=== PATIENT | male | born 1960 | race Caucasian/White ===

== ENCOUNTER → 2017-12-22 09:16 | Day surgery (SDC) | payer BC, SELFPAY ==
[2017-12-21 15:00] VITALS: BMI 32.5
--- NOTE | 2017-12-21 15:18 | RAD_ITS ---
STUDY: X-RAY CHEST REASON FOR EXAM: Male, 57 years old. Chest pain/pressure TECHNIQUE: PA and 2 lateral views of the chest. COMPARISON: None. FINDINGS: The lungs are clear and expanded. There is no demonstrated pleural abnormality. Normal size heart. Normal mediastinum and nitin. Normal visualized pulmonary arteries. Normal visualized aortic arch and descending thoracic aorta. Normal visualized thoracic spine. Normal visualized ribs, clavicles, and shoulders. There is no demonstrated abnormality of the visualized soft tissue structures of the upper abdomen. RAD/Chest PA and Lateral IMPRESSION: Normal x-ray examination of the chest. Electronically Signed: Misael Huerta MD at 8:40 EDT , Service support ,
[2017-12-21 15:41] LABS: Absolute Lymphocyte Count 2.18 X10^3/ul (0.83-4.51); Absolute Neutrophil Count 4.5 X10^3/uL (2.0-7.7); Basophil# 0.03 X10^3/uL; Basophil% 0.4 % (0-1); Eosinophil# 0.21 X10^3/uL; Eosinophils% 2.7 % (0-5); Hematocrit 50.2 % (40-54); Hemoglobin 17.7 g/dl (13.0-16.5); Lymphocyte # 2.18 X10^3/ul (4.0); Lymphocyte % 28.3 % (19-41); Mean Corp Hgb Conc 35.3 g/gl (32-36); Mean Corpuscular Hgb 30.8 pg (27.0-32.0); Mean Corpuscular Volume 87.3 fL (80-94); Mean Platelet Vol. 10.3 fl (6.2-12.0); Monocyte# 0.75 X10^3/uL; Monocyte% 9.7 % (0-10); Neutrophil # 4.52 X10^3/uL (2.7-7.7); Neutrophil % 58.6 % (47-70); Platelet Count 217 K/mm3 (150-450); RBC Distribution Width CV 13.3 % (11.6-14.6); RBC Distribution Width SD 41.9 fl (35.1-43.9); Red Blood Count 5.75 M/mm3 (4.6-6.2); White Blood Count 7.7 K/mm3 (4.4-11.0)
[2017-12-21 15:46] LABS: POSITIVE COUNT NO; POSITIVE DIFFERENTIAL NO; POSITIVE MORPHOLOGY NO
[2017-12-21 15:59] LABS: International Normalized Ratio 1.1; Prothrombin Time (Protime)PT. 13.8 SECONDS (11.7-14.9)
[2017-12-21 16:23] LABS: Anion Gap 7 (5-15); BUN 16 mg/dL (7-18); BUN/Creat Ratio 14.3 RATIO (10-20); Calcium,Total 8.6 mg/dL (8.5-10.1); Chloride 106 mmol/L (98-107); Creatinine, Serum 1.12 mg/dL (0.70-1.30); EST Glomerular Filtration Rate 71 mL/min (>60); Est Glom Filt Rate - Afr Amer 86 mL/min (>60); Estimated Creatinine Clearance 80.26 ml/min; Glucose 146 mg/dL (74-106); Sodium Level 138 mmol/L (136-145)
--- NOTE | 2017-12-22 09:19 | STE_ITS ---
Reason For Study: CHEST PAIN Stress Results Protocol: Stress Echocardiogram Maximum Predicted HR: 161 bpm Target HR: 137 bpm% Maximum Pr edicted HR: 89 % DurationHeart Rate Stage (mm:ss) (bpm) BPCom ment BASELINE 72 144/84 LUIS PROTOCOL- STAGE 1 3:00 12 6 144/80 LUIS PROTOCOL- STAGE 2 2:45 14 4 146/84MIDSTERNAL CP, L ARM PAIN RECOVERY 92 158/84 CHEST/ARM PAIN SUBSIDED Stress Duration: 5:45 mm:ss Maximum Stress HR: 144 bpm Baseline Echocardiogram Findings Stress Echo Wall motion Data Resting WMIntermediate WMStress WM Resting Wall Motion Wall Motion Stress No regional wall motion No regional wall motion abnormalities noted. abnormalities noted. Ejection Fraction 55 %. Ejection Fraction 65 %. Stress Results Exercise was stopped due to chest pain. EKG Data Baseline ECG demonstrates normal sinus rhythm with a rate of 75 beats per minute. Normal intervals are noted. The resting blood pressure was 144/84. The patient exercised according to the regular Luis protocol for a total duration of 5 min 46sec. The maximum heart rate attained was 144 beats per minute. This was 89% of maximum predicted heart rate. The patient exercised into stage 2 of the Luis protocol. The stress ECG displays diffuse abnormal ST segments. 1.[address] depression noted in the inferolateral leads developing in stage 2 of the exercise with chest pain and arm pain noted. Interpretation Summary Normal resting LV systolic function. Nonstenotic valves. With stress, the LV size decreased and all segments augmented somewhat normally. The LVEF increased from 55% to 65%.There was approximately 1.[address] depression noted starting at stage II of the exercise associated with left arm pain and chest pain. Immediate post recovery there was improvement in the ST changes with dissipation of the chest pain..Images obtained with suboptimal but there was a suggestion of inferior lateral ischemia present based on wall motion abnormalities present. Abnormal stress echo with EKG changes and symptoms noted at a moderate workload. Ordering Physician: Eric Mcnair Referring Physician: Eric Mcnair Performed By: Marium Aleman, ALEKSEY, RVT
--- NOTE | 2017-12-22 13:51 | CASEMGMT ---
Insurance review for [facility] facilities. [facility], [facility], , [place]. If another facility needs reviewed, please contact Anderson SULLIVAN CM @ ext [phone].
--- NOTE | 2017-12-23 09:41 | CL.D_ITS ---
Patient Name: FIORELLA MEDINA Study Date: 12/22/2017 Performing: Eric Mcnair MD Ht: 73 inches 185 cm : 1960 Wt: 247.2 lbs 112 kg Age: 57 Gender: male BSA: 2.35 PROCEDURE(S) PERFORMED KY85-SGM/COR/LV CLINICAL PROFILE AND INDICATIONS Indications: Worsening Angina Heart Failure: None Stress/Imaging Stress Echocardiogram: Yes Result: Positive High RiskStress Echocardiogram: Positi ve High Risk Angina Classification Anginal Classification w/in 2 Weeks: CCS III CAD Presentations: Unstable angina. CONCLUSIONS Severe two-vessel disease involving the proximal and mid left anterior descending artery as well as t he mid and distal left circumflex artery nondominant vessel. RECOMMENDATIONS Surgery consult for coronary revascularization DESCRIPTION OF PROCEDURE The patient arrived to the procedure lab. The risks and benefits of the procedure as well as a full d escription of our services here and current unavailability of surgical backup were fully explained to the patient and/or their significant other prior to the catheterization. The Timeout was completed, verifying the correct patient and procedure. The patient's procedural site was prepped and draped in the usual fashion. Local anesthetic was given subcutaneously to right radial region with Lidocaine 2% . Using a modified Seldinger technique, arterial access was obtained via the right radial artery, a 6 Fr sheath was inserted. Right Coronary Artery selective angiography was then performed in multiple v iews using a 5 Fr. 4.0 Rohwer catheter. Left Coronary Artery selective angiography was performed in mu ltiple views using a 5 Fr. 4.0 Rohwer catheter. Left Coronary Artery selective angiography was perform ed in multiple views using a 5 Fr. JL4 catheter. Left Ventriculography was performed in SCHNEIDER projectio n using a 5 Fr. Pigtail catheter. LV to AO pullback pressures were then recorded.The arterial sheath was pulled and a TR Band was applied for hemostasis w/ 18ml air CORONARY ANGIOGRAPHY DOMINANCE: Left Dominant LEFT HEART ASSESSMENT Left Ventricular Ejection Fraction: by LV Gram 65 % Normal LV wall motion Normal Left Ventricular systolic function LEFT MAIN: Angiographically normal LEFT ANTERIOR DECENDING ARTERY: PROX LAD: Severe proximal 90% eccentric stenosis and mid segment 80% long stenosis involving a first diagonal and first septal intermediate card tender. CIRCUMFLEX ARTERY: Mid eccentric 80% stenosis and a proximal posterior descending artery 80% long erlin notic lesion RIGHT CORONARY ARTERY: MID RCA: 70 % Stenosis COMPLICATIONS No Complications PROCEDURE MEDICATIONS Versed 1 mg IV Fentanyl 50 mcg IV Versed 1 mg IV Oxygen: 2 L/min via nasal cannula Heparin diluted in 23cc Heparinized saline. Patient given 10cc IA of this solution. 12/22/2017 13:09: 45 Verapamil 2.5mg, Ntg 100mcgs, 2000 units of Heparin diluted in 23cc Heparinized saline. Patient give n 10cc IA of this solution. 12/22/2017 13:09:45 Tylenol 650 mg PO 12/22/2017 13:54:10 SUMMARY OF HEMODYNAMIC DATA Time AIR REST ECG 11:25:20 AO 111/68 (87) SA 13:11:15 LV 134/3, 9 13:30:54 LV 137/4, 11 13:31:00 LV 139/4, 12 13:32:28 LVp 141/5, 14 13:32:31 AOp 136/72 (101) 13:32:36 RM AIR REST 14:34:00 Signed By Eric Mcnair MD On 12/22/2017 17:20:57 Eric Mcnair MD
== END ==
PROVIDERS: Family Provider Family Medicine; PCP Family Medicine; Visit Provider Internal Medicine Cardiovascular Disease
DX: I25.110 Atherosclerotic heart disease of native coronary artery with unstable angina pectoris (principal); R07.9 Chest pain, unspecified; E78.00 Pure hypercholesterolemia, unspecified; K21.9 Gastro-esophageal reflux disease without esophagitis; G47.33 Obstructive sleep apnea (adult) (pediatric); Z79.82 Long term (current) use of aspirin; Z79.899 Other long term (current) drug therapy
CPT/HCPCS: 36415; 71046; 80048; 85025; 85610; 93017; 93350; 93458; 99152; 99153; J7040; Q9957; Q9967; A4216; C1769; C1894

== ENCOUNTER → 2018-01-18 07:44 | Outpatient (CLI) | payer BC, SELFPAY ==
--- NOTE | 2018-01-18 12:56 | PCM.CR.HP2 ---
CR - History & Physical - General Arrival date:: 01/18/18 Arrival time:: 12:59 Date of Referral:: 01/09/18 Date of CR Evaluation:: 01/18/18 Referring Physician: Dr. Eric Mcnair Primary Diagnosis: CABG X 4 - History of Present Cardiac Event Onset Date: Enter Onset Date of cardiac illnesses in Comment field below Coronary Artery Bypass Graft:: Yes - 12/26/2017 @ [facility] Dr. Hart Type of Symptoms:: Mowing shortness of breath, or pulling something notice short of breath. Referred to Dr. Mcnair from Dr. Vázquez for further evaluation. Interventions with present event:: Left heart cath and within 12 minutes sent to [facility] following completion. Were there any complications?: Spontaneous pneumothorax; chest tube placed. - Medications Home Medications: Ambulatory Orders Medication Instructions Recorded esomeprazole magnesium 40 mg 40 mg PO QDAY 12/20/17 capsule,delayed release fluticasone 50 mcg/actuation nasal 2 spray INTRANASAL QDAY 12/20/17 spray,suspension aspirin 81 mg tablet,delayed 81 mg PO QDAY #90 tab 12/21/17 release melatonin 10 mg capsule 10 mg PO HS PRN 12/21/17 pravastatin 40 mg tablet 40 mg PO QHS tab 12/21/17 acetaminophen 325 mg tablet 650 mg PO Q6H PRN tab 01/05/18 hydrocodone 5 mg-acetaminophen 325 1 tab PO Q6H PRN 01/05/18 mg tablet polyethylene glycol 3350 17 17 g PO QDAY PRN g 01/05/18 gram/dose oral powder sennosides 8.6 mg tablet 8.6 mg PO BID PRN 01/05/18 metoprolol succinate ER 50 mg 50 mg PO QDAY #90 tab 01/06/18 tablet,extended release 24 hr - Allergies Allergies/Adverse Reactions: Allergies atorvastatin Adverse Reaction (Unverified 01/18/18 13:04) myalgias started taking statins at night and experiencing no side effects. - Sleep Disorder Evaluation Hx of Sleep Apnea: Yes Do you snore loudly (louder than talking or can be heard through closed doors)?: Yes - uses CPAP at variable setting 7-17cm H2O Do you often feel tired/ fatigued/ sleepy during daytime?: No Has anyone observed you stop breathing during sleep?: No History of Hypertension (for STOP score): No STOP Results: Negative Advanced Directives - Advanced Directives Power of Sample Card Maker: Yes - is legal P.O.A Healthcare Living Will: Yes Advance Directives on File: No - unsure if they are on file here at [facility] DNR Order?:: No Past Medical History - Past Medical Illness Medical History: Past Medical History (Last Reviewed 01/06/18 @ 13:55 by Eric Mcnair MD) Pneumothorax (Acute) J93.9 Post CABG, 12/30/17: trace on right and small left apcial pneumothoraces: chest tube placed temporarily to aid in resolution. 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 Rafi Hart @ [facility]: NO to LAD, free PATRICIA to DX, reverse SVG to OM and reverse SVG to left posterior lateral branch GERD (gastroesophageal reflux disease) (Chronic) K21.9 Obstructive sleep apnea (Chronic) G47.33 Hyperlipidemia (Chronic) E78.5 - Past Surgical History Surgical History: Past Surgical History (Last Reviewed 01/06/18 @ 13:55 by Eric Mcnair MD) S/P CABG x 4 (Chronic) Onset Date: 12/26/17 Z95.[address] Rafi Hart @ [facility]: NO to LAD, free PATRICIA to DX, reverse SVG to OM and reverse SVG to left posterior lateral branch History of left heart catheterization (Chronic) Onset Date: Z98.890 - Family History Summary Family History: Family History (Last Reviewed 01/06/18 @ 13:55 by Eric Mcnair MD) Mother Cancer Father CAD (coronary artery disease) [place] in his 50's CABG Myocardial infarction Social History - Smoking History Smoking Status: Never smoker Hx Tobacco Use: No Hx Smoking Exposure: No - Alcohol Use Alcohol Usage: No - Substance Abuse Hx Substance Use: No - Occupation Occupation (List type of work in comments):: Employed Hours worked per day:: 8 - average day can be 8 to 10 hours - Hobbies, Recreation, Social Activities Hobbies: Other - golfing. Recreational Activities: I am able to engage in a few activities - experiences easy fatigue with least little bit of activity; only been 3 weeks post op. Social Environment - Status Marital Status: - Current Living Arrangements Living Environment:: Spouse - Children How many children do you have?: 3 Do any of your children live nearby?: No - 2-[place] [facility] - Safety Do you feel safe in your surroundings?: Yes - Assistance Do you need any assistance at home?: Not now; first week home had family there to help. Review of Systems - Review of Systems Hints: Right click = Denies (Slash). Left click = Reports (Lorain) Review of Present Symptoms: Reports: Shortness of Breath with Exertion - walking about 1/2 mile to mile each day around neighborhood; only experiences fatigue no shortness of breath., Wound Healing, Dizziness/Lightheadedness - sometimes on metoprolol 50 mg a little sensitive standing to quickly or moving about to quickley., Fatigue, Appetite - Normal - back to normal now, has cut back on portion sizes., Appetite - Special Diet - Lost 18 pounds, 1800 calories low fat, low salt diet.. Denies: Shortness of Breath at Rest, Operative Discomfort, Heart Arrhythmia/Irregularities, Sleep - Normal - very difficult; currently taking ambien at night sleep very irregular and spuratic. Finds that sleeping can be very uncomfortable. Turn the wrong way get spuratic pain or get discomfort from monique surgery., Sexual Changes - Pain Is Patient Pain Free?: No Pain Location: none Pain Level: 0/10 Risk Factor Assessment - Chief Complaint Chief Complaint: Patient is a very pleasant 57 year old male of Dr. Mcnair who presents to cardiac rehab today following recent 4 vessel coronary bypass surgery on 12/26/2017 at [facility] under the care of Dr. Rafi Hart. - Vital Signs Temperature: 98.7 F Respiratory Rate: 16 Pulse Ox: 98 Blood Pressure: 128/74 Nailbeds:: pink - Pulse Pulse Rate: 98 - had some coffee this morning. Pulse Rhythm: Regular - Hypertension Blood Pressure Sitting - Left Arm: 128/74 - Obesity Height: 6 ft 2 in Weight:: 230 lb - on home scale clothed today Weight in Pounds: 230.0 lbs Weight Source: Stated by Patient Body Mass Index (BMI): 29.5 Desired Body Weight: 186-194 Nutritional Referral for Obesity: Yes - Patient is interested in structured weight loss plan and cardiac diet help. - Physical Inactivity Physical Inactivity: Reg Exercise 30 min/day - For Smoking Smoking Risk Guidelines: Smoking Low Risk: None or quit greater than 6 months ago. Smoking Moderate Risk: Smoker or quit 6 months or less ago. Smoking High Risk: Smoker - For Dyslipidemia Dyslipidemia Risk Guidelines: Low Risk: Moderate Risk: High Risk: 15-25% fat 25.1-29% fat >/= 30% fat. <7% sat fat 7-9% sat fat >9% sat fat. <150 mg chol 150-299 mg chol >/= 300 mg chol. LDL <100 LDL 100-129 LDL >/= 130. Chol/HDL ratio <5.0 Chol/HDL ratio 5.0-6.0 Chol/HDL ratio >6.0. Triglycerides <100 Triglycerides 100-149 Triglycerides >/= 150 - For Diabetes Mellitus Diabetes Risk Guidelines: Diabetes Low Risk: HgA1c <6.5% and/or FBG <120. Diabetes Moderate Risk: HgA1c 6.6-7.9% and/or FBG 120-180. Diabetes High Risk: HgA1c >/= 8% and/or FBG >180 - For Obesity/Overweight Obesity/Overweight Risk Guidelines: Obesity Low Risk: BMI <25.0. Obesity Moderate Risk: BMI 25-29.9. Obesity High Risk: BMI >/= 30.0 - For Hypertension Hypertension Risk Guidelines: Hypertension Low Risk: Systolic <120 and Diastolic <80. Hypertension Moderate Risk: Systolic 120-139 and Diastolic 80-89. Hypertension High Risk: Systolic >/= 140 and Diastolic >/= 90 - For Sedentary Lifestyle Sedentary Lifestyle Risk Guidelines: Sedentary Lifestyle Low Risk: >/= 1,500 kcal/week. Sedentary Lifestyle Moderate Risk: 700-1,499 kcal/week. Sedentary Lifestyle High Risk: < 700 kcal/week - For Depression Depression Risk Guidelines: Depression Low Risk: Not clinically depressed. Depression Moderate Risk: Mildly depressed. Depression High Risk: Clinically depressed - Family History Family History: Family History (Last Reviewed 01/06/18 @ 13:55 by Eric Mcnair MD) Mother Cancer Father CAD (coronary artery disease) Myocardial infarction Motivation - Motivation to Participate On a scale of 1 to 10, how prepared are you to commit to attending program?: 9 - make sure doing what I need to do. What do you see as barriers to successfully being able to complete the program?: none What do you see as the benefits of succesfully completing the program? In other words, what do you hope to get out of participating in the program?: keep healthy, lose a few more pounds, live a healthier lifestyle Are there issues you are dealing with that will interfere with completing the program?: none Do you have a spouse or signficant other, family or friends who will help support you to complete the program?: yes.
--- NOTE | 2018-01-18 13:07 | CR.HP_ITS ---
CR - History & Physical - General Arrival date:: 01/18/18 Arrival time:: 12:59 Date of Referral:: 01/09/18 Date of CR Evaluation:: 01/18/18 Referring Physician: Dr. Eric Mcnair Primary Diagnosis: CABG X 4 - History of Present Cardiac Event Onset Date: Enter Onset Date of cardiac illnesses in Comment field below Coronary Artery Bypass Graft:: Yes - 12/26/2017 @ [facility] Dr. Hart Type of Symptoms:: Mowing shortness of breath, or pulling something notice short of breath. Referred to Dr. Mcnair from Dr. Vázquez for further evaluation. Interventions with present event:: Left heart cath and within 12 minutes sent to [facility] following completion. Were there any complications?: Spontaneous pneumothorax; chest tube placed. - Medications Home Medications: Ambulatory Orders Medication Instructions Recorded esomeprazole magnesium 40 mg 40 mg PO QDAY 12/20/17 capsule,delayed release fluticasone 50 mcg/actuation nasal 2 spray INTRANASAL QDAY 12/20/17 spray,suspension aspirin 81 mg tablet,delayed 81 mg PO QDAY #90 tab 12/21/17 release melatonin 10 mg capsule 10 mg PO HS PRN 12/21/17 pravastatin 40 mg tablet 40 mg PO QHS tab 12/21/17 acetaminophen 325 mg tablet 650 mg PO Q6H PRN tab 01/05/18 hydrocodone 5 mg-acetaminophen 325 1 tab PO Q6H PRN 01/05/18 mg tablet polyethylene glycol 3350 17 17 g PO QDAY PRN g 01/05/18 gram/dose oral powder sennosides 8.6 mg tablet 8.6 mg PO BID PRN 01/05/18 metoprolol succinate ER 50 mg 50 mg PO QDAY #90 tab 01/06/18 tablet,extended release 24 hr - Allergies Allergies/Adverse Reactions: Allergies atorvastatin Adverse Reaction (Unverified 01/18/18 13:04) myalgias started taking statins at night and experiencing no side effects. - Sleep Disorder Evaluation Hx of Sleep Apnea: Yes Do you snore loudly (louder than talking or can be heard through closed doors)? : Yes - uses CPAP at variable setting 7-17cm H2O Do you often feel tired/ fatigued/ sleepy during daytime?: No Has anyone observed you stop breathing during sleep?: No History of Hypertension (for STOP score): No STOP Results: Negative Advanced Directives - Advanced Directives Power of Information Writer: Yes - is legal P.O.A [facility] Living Will: Yes Advance Directives on File: No - unsure if they are on file here at [facility] DNR Order?:: No Past Medical History - Past Medical Illness Medical History: Past Medical History (Last Reviewed 01/06/18 @ 13:55 by Eric Mcnair MD) Pneumothorax (Acute) J93.9 Post CABG, 12/30/17: trace on right and small left apcial pneumothoraces: chest tube placed temporarily to aid in resolution. Atherosclerotic heart disease of [place] coronary artery without angina pectoris (Chronic) I25.[address] Rafi Hart @ [facility]: ON to LAD, free PATRICIA to DX, reverse SVG to OM and reverse SVG to left posterior lateral branch GERD (gastroesophageal reflux disease) (Chronic) K21.9 Obstructive sleep apnea (Chronic) G47.33 Hyperlipidemia (Chronic) E78.5 - Past Surgical History Surgical History: Past Surgical History (Last Reviewed 01/06/18 @ 13:55 by Eric Mcnair MD) S/P CABG x 4 (Chronic) Onset Date: 12/26/17 Z95.[address] Rafi Hart @ [facility]: NO to LAD, free PATRICIA to DX, reverse SVG to OM and reverse SVG to left posterior lateral branch History of left heart catheterization (Chronic) Onset Date: Z98.890 - Family History Summary Family History: Family History (Last Reviewed 01/06/18 @ 13:55 by Eric Mcnair MD) Mother Cancer Father CAD (coronary artery disease) [place] in his 50's CABG Myocardial infarction Social History - Smoking History Smoking Status: Never smoker Hx Tobacco Use: No Hx Smoking Exposure: No - Alcohol Use Alcohol Usage: No - Substance Abuse Hx Substance Use: No - Occupation Occupation (List type of work in comments):: Employed Hours worked per day:: 8 - average day can be 8 to 10 hours - Hobbies, Recreation, Social Activities Hobbies: Other - golfing. Recreational Activities: I am able to engage in a few activities - experiences easy fatigue with least little bit of activity; only been 3 weeks post op. Social Environment - Status Marital Status: - Current Living Arrangements Living Environment:: Spouse - Children How many children do you have?: 3 Do any of your children live nearby?: No - 2-[place] 1-[facility] - Safety Do you feel safe in your surroundings?: Yes - Assistance Do you need any assistance at home?: Not now; first week home had family there to help. Review of Systems - Review of Systems Hints: Right click = Denies (Slash). Left click = Reports ([place]) Review of Present Symptoms: Reports: Shortness of Breath with Exertion - walking about 1/2 mile to mile each day around neighborhood; only experiences fatigue no shortness of breath., Wound Healing, Dizziness/Lightheadedness - sometimes on metoprolol 50 mg a little sensitive standing to quickly or moving about to quickley., Fatigue, Appetite - Normal - back to normal now, has cut back on portion sizes., Appetite - Special Diet - Lost 18 pounds, 1800 calories low fat, low salt diet.. Denies: Shortness of Breath at Rest, Operative Discomfort, Heart Arrhythmia/Irregularities, Sleep - Normal - very difficult; currently taking ambien at night sleep very irregular and spuratic. Finds that sleeping can be very uncomfortable. Turn the wrong way get spuratic pain or get discomfort from monique surgery., Sexual Changes - Pain Is Patient Pain Free?: No Pain Location: none Pain Level: 0/10 Risk Factor Assessment - Chief Complaint Chief Complaint: Patient is a very pleasant 57 year old male of Dr. Mcnair who presents to cardiac rehab today following recent 4 vessel coronary bypass surgery on 12/26/2017 at [facility] under the care of Dr. Rafi Hart. - Vital Signs Temperature: 98.7 F Respiratory Rate: 16 Pulse Ox: 98 Blood Pressure: 128/74 Nailbeds:: pink - Pulse Pulse Rate: 98 - had some coffee this morning. Pulse Rhythm: Regular - Hypertension Blood Pressure Sitting - Left Arm: 128/74 - Obesity Height: 6 ft 2 in Weight:: 230 lb - on home scale clothed today Weight in Pounds: 230.0 lbs Weight Source: Stated by Patient Body Mass Index (BMI): 29.5 Desired Body Weight: 186-194 Nutritional Referral for Obesity: Yes - Patient is interested in structured weight loss plan and cardiac diet help. - Physical Inactivity Physical Inactivity: Reg Exercise 30 min/day - For Smoking Smoking Risk Guidelines: Smoking Low Risk: None or quit greater than 6 months ago. Smoking Moderate Risk: Smoker or quit 6 months or less ago. Smoking High Risk: Smoker - For Dyslipidemia Dyslipidemia Risk Guidelines: Low Risk: Moderate Risk: High Risk: 15-25% fat 25.1-29% fat >/= 30% fat. <7% sat fat 7-9% sat fat >9% sat fat. <150 mg chol 150-299 mg chol >/= 300 mg chol. LDL <100 LDL 100-129 LDL >/= 130. Chol/HDL ratio <5.0 Chol/HDL ratio 5.0-6.0 Chol/HDL ratio >6.0. Triglycerides <100 Triglycerides 100-149 Triglycerides >/= 150 - For Diabetes Mellitus Diabetes Risk Guidelines: Diabetes Low Risk: HgA1c <6.5% and/or FBG <120. Diabetes Moderate Risk: HgA1c 6.6-7.9% and/or FBG 120-180. Diabetes High Risk: HgA1c >/= 8% and/or FBG >180 - For Obesity/Overweight Obesity/Overweight Risk Guidelines: Obesity Low Risk: BMI <25.0. Obesity Moderate Risk: BMI 25-29.9. Obesity High Risk: BMI >/= 30.0 - For Hypertension Hypertension Risk Guidelines: Hypertension Low Risk: Systolic <120 and Diastolic <80. Hypertension Moderate Risk: Systolic 120-139 and Diastolic 80-89. Hypertension High Risk: Systolic >/= 140 and Diastolic >/= 90 - For Sedentary Lifestyle Sedentary Lifestyle Risk Guidelines: Sedentary Lifestyle Low Risk: >/= 1 ,500 kcal/week. Sedentary Lifestyle Moderate Risk: 700-1,499 kcal/week. Sedentary Lifestyle High Risk: < 700 kcal/week - For Depression Depression Risk Guidelines: Depression Low Risk: Not clinically depressed. Depression Moderate Risk: Mildly depressed. Depression High Risk: Clinically depressed - Family History Family History: Family History (Last Reviewed 01/06/18 @ 13:55 by Eric Mcnair MD) Mother Cancer Father CAD (coronary artery disease) Myocardial infarction Motivation - Motivation to Participate On a scale of 1 to 10, how prepared are you to commit to attending program?: 9 - make sure doing what I need to do. What do you see as barriers to successfully being able to complete the program? : none What do you see as the benefits of succesfully completing the program? In other words, what do you hope to get out of participating in the program?: keep healthy, lose a few more pounds, live a healthier lifestyle Are there issues you are dealing with that will interfere with completing the program?: none Do you have a spouse or signficant other, family or friends who will help support you to complete the program?: yes.
--- NOTE | 2018-01-18 13:19 | CR.ITP_ITS ---
General Information - General Information Admitting Diagnosis: CABG x4 - Education/Goals Individual Counseling: Initial Assessment: Abnormal Cholesterol Levels, Overweight/Obesity, B. Waist Circumference >35/Females >40/Males Cardiac Rehabilitation Goals: 1. Maintain the individual as the primary focus of care. 2. To improve the patient's quality of life. 3. Identification of cardiac risk factors and provide cardiac risk factor management. 4. Enhance the psychosocial status of the patient. 5. Reconditioning enough to allow the patient to resume customary activities. 6. Control symptoms of cardiac disease Scale for measuring improvement of personal goals: Enter appropriate number in Comments. 2 = Unchanged. 3 = Slightly Better. 4 = Moderate Improvement. 5 = Met my Goal Personal Goals: Initial Assessment: Improve management of stress and emotions, Improve energy level, Get back to work, or to resume activities faster, Improve knowledge of cardiac disease, Improve diet and eating habits (eat healthier), Control risk factors (learn risk factor modification) Exercise - Initial Assessment - Visit Date of Eval: 01/18/18 - established ITP; start on 01/20/2018 - Stages of Change Stages of Change:: Action - Exercise Prescription Mode:: Treadmill, Airdyne, NuStep Angina with exercise?: No Target Heart Rate:: 120-128 - Hypertension Do any of the following apply?: No Resting Blood Pressure:: 128/74 - Intervention Home Exercise/Activity Goal:: Moderate Exercise 30 min/day x 5 days/wk - Education Goals:: Warm-up, RPE ABDOULAYE Scale, S/S, Safe Exercise, Self-Monitoring - Exercise Program Goals Exercise Program Goals: Aerobic Activity >30 min Nutrition - Initial Assessment - Program Goals Nutrition Program Goals: LDL <70. Total Cholesterol <200. HDL >45. Triglycerides <150. HgbA1C <7%. BMI <25 - Visit Date of Assessment:: 01/18/18 - Stages of Change Stages of Change:: Action - Diabetes Diabetes:: No - Weight Management Height: 6 ft 2 in Weight:: 230 lb Weight Goal (kg):: 194 lb Body Fat %:: 29.5 - Intervention Referral to dietitian:: Yes - Patient is interested in structured weight loss and cardiac diet guideline Will attend diet classes:: Yes - Education Gave educational materials for:: Healthy eating Tobacco - Initial Assessment - Program Goals Tobacco Program Goals: Complete smoking cessation. Attend education classes. Improve Knowledge Test score - Stage of Change Stages of Change:: Action - Learning Barriers Learning Barriers: Ready to Learn - Tobacco Use Tobacco Use: Non-smoker - Patient has never smoked Do you use smokeless tobacco?: No - Intervention Smoking Cessation Referral:: No Individual Education/Counseling:: No Education Schedule Given:: Yes - Education Gave educational material for:: Coronary artery disease, Risk factors, Sexuality , Medical compliance, Cardiac A&P, Angina signs & symptoms Psychosocial - Initial Assess - Target Goals Target Goals: Assess presence or absence of depression. Using a valid screening tool, maximizes coping skills. Positive support system - Stages of Change Stages of Change:: Action - Psychosocial Test Tool Used:: HANDS Depression Questionnaire - Intervention PS - Interventions: Yes Attend Stress Management Classes, Yes Uses Stress Management Skills - Read, prayer, and watch old movies, No Referral to Mental Health, No Referral to [facility] Case Management, No Referral to Physician - Education Gave educational materials for:: Coping techniques, Signs & symptoms of depression, Stress management, Relaxation techniques - Patient/Program Goal Preventative Medication(s):: Aspirin, REECE inhibitor, Clopidogrel, Beta adriana, Statin/lipid - Assistive Devices Assistive Devices:: None Fall Risk Assessed:: Yes Patient Health Questionnaire Initial Assessment 1. Little interest or pleasure in doing things: More than half the days 2. Feeling down, depressed, or hopeless: More than half the days 3. Trouble falling or staying asleep, or sleeping too much: Several days 4. Feeling tired or having little energy: More than half the days 5. Poor appetite or overeating: More than half the days 6. Feeling bad about yourself -- or that you are a failure or have let yourself or your family down: Not at all 7. Trouble concentrating on things, such as reading the newspaper or watching television: More than half the days 8. Moving or speaking so slowly that other people could have noticed. Or the opposite - being so fidgety or restless that you have been moving around a lot more than usual: Not at all 9. Thoughts that you would be better off , or of hurting yourself in some way: Not at all How difficult have these problems made it for you to do your work, take care of things at home, or get along with other people?: Not difficult at all - patient noted he does not feel depressed; scores only reflect being 3 weeks post op and just getting back to normal activity. Total Score: 11 SHERRY-Q SV Test - Statements CAD is a disease of the arteries in the heart: False Examples of risk factors for heart disease: True Angina is chest pain or discomfort: True The benefits of resistance training include: True Eating more meat and dairy products: False Anti-platelet medications such as aspirin are important: True The only effective way to manage stress: False An exercise warm-up slowly increases heart rate: I Don't Know Prepared, processed foods usually have high sodium: True Depression is common after a heart attack: True The statin medications lower cholesterol: True To control blood pressure, lower the amount of sodium: True If someone gets chest discomfort during walking: False Transfats are partially hydrogenated vegetable oils: True Sleep apnea that is not treated increases the risk: False To control cholesterol, one should become a vegetarian: False Someone knows if he/she is exercising at the right level: True Diabetes cannot be prevented with exercise & health eating: False Stress is a large risk for heart attack: True A diet that can help lower blood pressure is rich in: True - Total Score Total Correct Responses: 19 Self-Efficacy Initial Assessment We would like to know how confident you are in doing certain activities. Please select your confidence level for:: Select your confidence level for the following using the scale 1-10 where 1 is not at all confident and 10 is totally confident. Your score is the average of all 6 responses. Fatigue: How confident are you that you can keep the fatigue caused by your disease from interfering with the things you want to do? Select Number: 10 Physical Discomfort or Pain: How confident are you that you can keep the physical discomfort or pain of your disease from interfering with the things you want to do? Select Number: 10 Emotional Distress: How confident are you that you can keep the emotional distress caused by your disease from interfering with the things you want to do? Select Number: 9 Other Symptoms or Health Problems: How confident are you that you can keep other symptoms or health problems from interfering with the things you want to do? Select Number: 10 Different Tasks and Activities: How confident are you that you can do the different tasks and activities needed to manage your health condition so as to reduce your need to see a doctor? Select Number: 10 Medication: How confident are you that you can do things other than just taking medication to reduce how much your illness affects your everyday life? Select Number: 10 Total Score:: 9 Nutrition Survey - Nutrition Survey Instructions Scoring Instructions: Scoring is as follows: Yes = 1 points. No = 0 point. Patient score that is >/=12 is considered to be at potential nutritional risk and could benefit from a referral to a registered dietitian. - Nutrition Survey Initial Have you lost >10 lbs over the past 2 months without trying?: Yes Are you following a special diet at home for diabetes, low fat, or low salt?: No Are you interested in meeting with a dietitian for help understanding your diet? : Yes Do you eat less than 3 meals a day?: No Do you eat fatty meats (osuna, sausage, ribs, etc), fried foods, desserts, large amounts of salad dressings, margarine, butter, or cheese most days?: Yes Do you have food allergies? [Enter types in comment field]: No Do you eat in restaurants more than 3 times a week?: No Do you season food with salt, seasoning salt, or garlic salt?: No Do you used canned, boxed, frozen meals, or soups, seasoning packets?: No Total Score:: 3
[2018-01-18 13:28] VITALS: BP 128/74; PULSE 98; RESP 16; TEMP 37.1; O2SAT 98; BMI 29.5
[2018-01-18 14:40] VITALS: BP 128/74
== END ==
PROVIDERS: Family Provider Family Medicine; PCP Family Medicine; Visit Provider Internal Medicine Cardiovascular Disease
DX: Z95.1 Presence of aortocoronary bypass graft (principal)

== ENCOUNTER 2018-02-06 15:15 | Outpatient (RCR) | payer BC, SELFPAY ==
--- NOTE | 2018-02-01 06:59 | PCM.CR.ITP ---
Exercise - 30-day Assessment - Visit Date of Eval: 02/01/18 Session #:: 5 - Stages of Change Stages of Change:: Action - Exercise Prescription Mode:: Treadmill, Rower, Airdyne, NuStep Frequency (x/week): 3 Duration:: 30 METs - Progression: 0.5-1 MET as tolerated: 4.5 Target Heart Rate:: 120-128 mx HR 133 - Hypertension Resting Blood Pressure:: 120/60 Peak Exercise Blood Pressure:: 128/62 Medication Changes:: No - Intervention Home Exercise/Activity Goal:: Moderate Exercise 30 min/day x 5 days/wk - Education Goals:: Warm-up, RPE ABDOULAYE Scale, S/S, Safe Exercise, Self-Monitoring - Exercise Program Goals Exercise Program Goals: Aerobic Activity >30 min Nutrition - 30-Day Assessment - Program Goals Nutrition Program Goals: LDL <70. Total Cholesterol <200. HDL >45. Triglycerides <150. HgbA1C <7%. BMI <25 - Visit Date of Eval: 02/01/18 - Stages of Change Stages of Change:: Action - Lipids Has the patient seen the dietitian?: No - Diabetes Diabetes:: No - Weight Management Weight:: 230 lb - lost 10 pounds so far! - Intervention Referral to dietitian:: No Referral to Diabetic Clinic:: No Will attend diet classes:: Yes - Education Attended class for:: Healthy eating Tobacco - Initial Assessment - Program Goals Tobacco Program Goals: Complete smoking cessation. Attend education classes. Improve Knowledge Test score - Learning Barriers Learning Barriers: Ready to Learn Tobacco - 30-Day Assessment - Program Goals Tobacco Program Goals: Complete smoking cessation. Attend education classes. Improve Knowledge Test score - Stage of Change Stages of Change:: Action - Learning Barriers Learning Barriers: Participates in education - Family Support Do you have family support?: Yes - participates in education also - Tobacco Use Tobacco Use: Non-smoker Do you use smokeless tobacco?: No - Intervention Smoking Cessation Referral:: No Individual Education/Counseling:: No Education Schedule Given:: Yes - Education Attended class for:: Coronary artery disease, Risk factors, Sexuality, Medical compliance, Cardiac A&P, Angina signs & symptoms Psychosocial - Initial Assess - Target Goals Target Goals: Assess presence or absence of depression. Using a valid screening tool, maximizes coping skills. Positive support system - Psychosocial Test Tool Used:: HANDS Depression Questionnaire - Assistive Devices Fall Risk Assessed:: Yes Psychosocial - 30-Day Assess - Target Goals Target Goals: Assess presence or absence of depression. Using a valid screening tool, maximizes coping skills. Positive support system - Stages of Change Stages of Change:: Action - Psychosocial Test Tool Used:: HANDS Depression Questionnaire - Intervention PS - Interventions: Yes Attend Stress Management Classes, No Referral to Mental Health, No Referral to [facility] Case Management, No Referral to Physician, No Uses Stress Management Skills - Education Attended classes for:: Coping techniques, Signs & symptoms of depression, Stress management, Relaxation techniques - Patient/Program Goal Preventative Medication(s):: Aspirin, Clopidogrel, Statin/lipid - Assistive Devices Assistive Devices:: None Fall Risk Assessed:: Yes Patient Health Questionnaire 30-Day Re-eval Assessment 1. Little interest or pleasure in doing things: Not at all 2. Feeling down, depressed, or hopeless: Not at all 3. Trouble falling or staying asleep, or sleeping too much: Not at all 4. Feeling tired or having little energy: Not at all 5. Poor appetite or overeating: Not at all 6. Feeling bad about yourself -- or that you are a failure or have let yourself or your family down: Not at all 7. Trouble concentrating on things, such as reading the newspaper or watching television: Not at all 8. Moving or speaking so slowly that other people could have noticed. Or the opposite - being so fidgety or restless that you have been moving around a lot more than usual: Not at all 9. Thoughts that you would be better off , or of hurting yourself in some way: Not at all Total Score: 0 Self-Efficacy 30-Day Re-eval Assessment We would like to know how confident you are in doing certain activities. Please select your confidence level for:: Select your confidence level for the following using the scale 1-10 where 1 is not at all confident and 10 is totally confident. Your score is the average of all 6 responses. Fatigue: How confident are you that you can keep the fatigue caused by your disease from interfering with the things you want to do? Select Number: 10 Physical Discomfort or Pain: How confident are you that you can keep the physical discomfort or pain of your disease from interfering with the things you want to do? Select Number: 10 Emotional Distress: How confident are you that you can keep the emotional distress caused by your disease from interfering with the things you want to do? Select Number: 10 Other Symptoms or Health Problems: How confident are you that you can keep other symptoms or health problems from interfering with the things you want to do? Select Number: 10 Different Tasks and Activities: How confident are you that you can do the different tasks and activities needed to manage your health condition so as to reduce your need to see a doctor? Select Number: 10 Medication: How confident are you that you can do things other than just taking medication to reduce how much your illness affects your everyday life? Select Number: 10 Total Score:: 10
[2018-02-01 07:03] VITALS: BP 120/60; BP 128/62
== END 2018-02-07 23:59 ==
LOC: CR 15:15
PROVIDERS: Family Provider Family Medicine; PCP Family Medicine; Visit Provider Internal Medicine Cardiovascular Disease
DX: I25.10 Atherosclerotic heart disease of native coronary artery without angina pectoris (principal); Z95.1 Presence of aortocoronary bypass graft
CPT/HCPCS: 93798

== ENCOUNTER 2018-03-10 15:15 | Outpatient (RCR) | payer BC, SELFPAY ==
[2018-02-08 01:23] VITALS: BP 120/60; BP 128/62
--- NOTE | 2018-03-03 08:20 | CR.ITP_ITS ---
General Information - General Information Admitting Diagnosis: S/P CABG - Education/Goals Barriers to Learning: None Cardiac Rehabilitation Goals: 1. Maintain the individual as the primary focus of care. 2. To improve the patient's quality of life. 3. Identification of cardiac risk factors and provide cardiac risk factor management. 4. Enhance the psychosocial status of the patient. 5. Reconditioning enough to allow the patient to resume customary activities. 6. Control symptoms of cardiac disease Scale for measuring improvement of personal goals: Enter appropriate number in Comments. 2 = Unchanged. 3 = Slightly Better. 4 = Moderate Improvement. 5 = Met my Goal Exercise - 60-Day Assessment - Visit Date of Eval: 03/03/18 Session #:: 16 - Stages of Change Stages of Change:: Action - Exercise Prescription Mode:: Treadmill, Airdyne, NuStep Frequency (x/week): 3 Duration:: 30 METs: 6.9 Target Heart Rate:: 128-137 Max HR 147 - Hypertension Resting Blood Pressure:: 110/62 Peak Exercise Blood Pressure:: 158/78 Medication Changes:: No - Intervention Home Exercise/Activity Goal:: Sitting Time <3 hrs/day - Education Goals:: Warm-up, RPE ABDOULAYE Scale, S/S, Safe Exercise, Self-Monitoring - Exercise Program Goals Exercise Program Goals: Aerobic Activity >30 min, B/P <130/80 Nutrition - 60-Day Assessment - Program Goals Nutrition Program Goals: LDL <70. Total Cholesterol <200. HDL >45. Triglycerides <150. HgbA1C <7%. BMI <25 - Visit Date of Eval: 03/03/18 - Stages of Change Stages of Change:: Action - Lipids Has the patient seen the dietitian?: No - Diabetes Diabetes:: No - Weight Management Weight:: 104.78 kg - Intervention Referral to dietitian:: No Referral to Diabetic Clinic:: No Will attend diet classes:: Yes - Education Attended class for:: Signs & symptoms of hypoglycemia, Signs & symptoms of hyperglycemia, Relate diabetes to coronary artery disease, Healthy eating Tobacco - Initial Assessment - Program Goals Tobacco Program Goals: Complete smoking cessation. Attend education classes. Improve Knowledge Test score - Learning Barriers Learning Barriers: Ready to Learn Tobacco - 60-Day Assessment - Program Goals Tobacco Program Goals: Complete smoking cessation. Attend education classes. Improve Knowledge Test score - Stage of Change Stages of Change:: Action - Learning Barriers Learning Barriers: Participates in education - Family Support Do you have family support?: Yes - Tobacco Use Tobacco Use: Non-smoker Do you use smokeless tobacco?: No - Intervention Smoking Cessation Referral:: No Individual Education/Counseling:: No Education Schedule Given:: Yes - Education Attended class for:: Tobacco triggers, Coronary artery disease, Risk factors, Sexuality, Medical compliance, Cardiac A&P, Angina signs & symptoms Psychosocial - 60-Day Assess - Target Goals Target Goals: Assess presence or absence of depression. Using a valid screening tool, maximizes coping skills. Positive support system - Stages of Change Stages of Change:: Action - Psychosocial Test Tool Used:: HANDS Depression Questionnaire - Intervention PS - Interventions: Yes Attend Stress Management Classes, Yes Uses Stress Management Skills, No Referral to Mental Health, No Referral to [facility] Case Management, No Referral to Physician - Education Attended classes for:: Coping techniques, Signs & symptoms of depression, Stress management, Relaxation techniques - Assistive Devices Assistive Devices:: None Fall Risk Assessed:: Yes Patient Health Questionnaire 60-Day Re-eval Assessment 1. Little interest or pleasure in doing things: Not at all 2. Feeling down, depressed, or hopeless: Not at all 3. Trouble falling or staying asleep, or sleeping too much: Not at all 4. Feeling tired or having little energy: Not at all 5. Poor appetite or overeating: Not at all 6. Feeling bad about yourself -- or that you are a failure or have let yourself or your family down: Not at all 7. Trouble concentrating on things, such as reading the newspaper or watching television: Not at all 8. Moving or speaking so slowly that other people could have noticed. Or the opposite - being so fidgety or restless that you have been moving around a lot more than usual: Not at all 9. Thoughts that you would be better off , or of hurting yourself in some way: Not at all How difficult have these problems made it for you to do your work, take care of things at home, or get along with other people?: Not difficult at all Total Score: 0 Self-Efficacy 60-Day Re-eval Assessment We would like to know how confident you are in doing certain activities. Please select your confidence level for:: Select your confidence level for the following using the scale 1-10 where 1 is not at all confident and 10 is totally confident. Your score is the average of all 6 responses. Fatigue: How confident are you that you can keep the fatigue caused by your disease from interfering with the things you want to do? Select Number: 10 Physical Discomfort or Pain: How confident are you that you can keep the physical discomfort or pain of your disease from interfering with the things you want to do? Select Number: 10 Emotional Distress: How confident are you that you can keep the emotional distress caused by your disease from interfering with the things you want to do? Select Number: 10 Other Symptoms or Health Problems: How confident are you that you can keep other symptoms or health problems from interfering with the things you want to do? Select Number: 10 Different Tasks and Activities: How confident are you that you can do the different tasks and activities needed to manage your health condition so as to reduce your need to see a doctor? Select Number: 10 Medication: How confident are you that you can do things other than just taking medication to reduce how much your illness affects your everyday life? Select Number: 10 Total Score:: 10
[2018-03-03 08:22] VITALS: BP 110/62; BP 158/78
== END 2018-03-10 23:59 ==
LOC: CR 15:15
PROVIDERS: Family Provider Family Medicine; PCP Family Medicine; Visit Provider Internal Medicine Cardiovascular Disease
DX: I25.10 Atherosclerotic heart disease of native coronary artery without angina pectoris (principal); Z95.1 Presence of aortocoronary bypass graft
CPT/HCPCS: 93798

== ENCOUNTER 2018-04-07 15:15 | Outpatient (RCR) | payer BC, SELFPAY ==
[2018-03-11 01:25] VITALS: BP 110/62; BP 158/78
--- NOTE | 2018-04-05 08:22 | CR.ITP_ITS ---
General Information - General Information Admitting Diagnosis: CABG - Education/Goals Cardiac Rehabilitation Goals: 1. Maintain the individual as the primary focus of care. 2. To improve the patient's quality of life. 3. Identification of cardiac risk factors and provide cardiac risk factor management. 4. Enhance the psychosocial status of the patient. 5. Reconditioning enough to allow the patient to resume customary activities. 6. Control symptoms of cardiac disease Scale for measuring improvement of personal goals: Enter appropriate number in Comments. 2 = Unchanged. 3 = Slightly Better. 4 = Moderate Improvement. 5 = Met my Goal Exercise - 90-Day Assessment - Visit Date of Eval: 04/05/18 Session #:: 29 - Stages of Change Stages of Change:: Action - Exercise Prescription Mode:: Treadmill, Airdyne, NuStep Frequency (x/week): 3 Duration:: 30 METs: 7.9 Target Heart Rate:: 128-137 max HR 133 - Hypertension Resting Blood Pressure:: 124/66 Peak Exercise Blood Pressure:: 132/68 Medication Changes:: Yes - Education Goals:: Warm-up, RPE ABDOULAYE Scale, S/S, Safe Exercise, Self-Monitoring - Exercise Program Goals Exercise Program Goals: Aerobic Activity >30 min, B/P <130/80 Nutrition - 90-Day Assessment - Program Goals Nutrition Program Goals: LDL <70. Total Cholesterol <200. HDL >45. Triglycerides <150. HgbA1C <7%. BMI <25 - Visit Date of Eval: 04/05/18 - Stages of Change Stages of Change:: Action - Lipids Has the patient seen the dietitian?: No - Weight Management Weight:: 233 kg - Intervention Referral to dietitian:: No Referral to Diabetic Clinic:: No Will attend diet classes:: Yes - Education Attended class for:: Signs & symptoms of hypoglycemia, Signs & symptoms of hyperglycemia, Relate diabetes to coronary artery disease, Healthy eating Tobacco - Initial Assessment - Program Goals Tobacco Program Goals: Complete smoking cessation. Attend education classes. Improve Knowledge Test score - Learning Barriers Learning Barriers: Ready to Learn Tobacco - 90-Day Assessment - Program Goals Tobacco Program Goals: Complete smoking cessation. Attend education classes. Improve Knowledge Test score - Stage of Change Stages of Change:: Action - Learning Barriers Learning Barriers: Participates in education - Family Support Do you have family support?: Yes - Tobacco Use Tobacco Use: Non-smoker Do you use smokeless tobacco?: No - Intervention Smoking Cessation Referral:: No Individual Education/Counseling:: No Education Schedule Given:: Yes - Education Attended class for:: Tobacco triggers, Coronary artery disease, Risk factors, Sexuality, Medical compliance, Cardiac A&P, Angina signs & symptoms Psychosocial - Initial Assess - Target Goals Target Goals: Assess presence or absence of depression. Using a valid screening tool, maximizes coping skills. Positive support system - Psychosocial Test Tool Used:: HANDS Depression Questionnaire - Assistive Devices Fall Risk Assessed:: Yes Psychosocial - 90-Day Assess - Target Goals Target Goals: Assess presence or absence of depression. Using a valid screening tool, maximizes coping skills. Positive support system - Stages of Change Stages of Change:: Action - Psychosocial Test Tool Used:: HANDS Depression Questionnaire - Intervention PS - Interventions: Yes Attend Stress Management Classes, Yes Uses Stress Management Skills, No Referral to Mental Health, No Referral to [facility] Case Management, No Referral to Physician - Education Attended classes for:: Coping techniques, Signs & symptoms of depression, Stress management, Relaxation techniques - Assistive Devices Assistive Devices:: None Fall Risk Assessed:: Yes Patient Health Questionnaire 90-Day Re-eval Assessment 1. Little interest or pleasure in doing things: Not at all 2. Feeling down, depressed, or hopeless: Not at all 3. Trouble falling or staying asleep, or sleeping too much: Not at all 4. Feeling tired or having little energy: Not at all 5. Poor appetite or overeating: Not at all 6. Feeling bad about yourself -- or that you are a failure or have let yourself or your family down: Not at all 7. Trouble concentrating on things, such as reading the newspaper or watching television: Not at all 8. Moving or speaking so slowly that other people could have noticed. Or the opposite - being so fidgety or restless that you have been moving around a lot more than usual: Not at all 9. Thoughts that you would be better off , or of hurting yourself in some way: Not at all How difficult have these problems made it for you to do your work, take care of things at home, or get along with other people?: Not difficult at all Total Score: 0 Self-Efficacy 90-Day Re-eval Assessment We would like to know how confident you are in doing certain activities. Please select your confidence level for:: Select your confidence level for the radha ramires using the scale 1-10 where 1 is not at all confident and 10 is totally confident. Your score is the average of all 6 responses. Fatigue: How confident are you that you can keep the fatigue caused by your disease from interfering with the things you want to do? Select Number: 10 Physical Discomfort or Pain: How confident are you that you can keep the physical discomfort or pain of your disease from interfering with the things you want to do? Select Number: 10 Emotional Distress: How confident are you that you can keep the emotional distress caused by your disease from interfering with the things you want to do? Select Number: 10 Other Symptoms or Health Problems: How confident are you that you can keep other symptoms or health problems from interfering with the things you want to do? Select Number: 10 Different Tasks and Activities: How confident are you that you can do the different tasks and activities needed to manage your health condition so as to reduce your need to see a doctor? Select Number: 10 Medication: How confident are you that you can do things other than just taking medication to reduce how much your illness affects your everyday life? Select Number: 10 Total Score:: 10
[2018-04-05 08:23] VITALS: BP 124/66; BP 132/68
== END 2018-04-09 23:59 ==
LOC: CR 15:15
PROVIDERS: Family Provider Family Medicine; PCP Family Medicine; Visit Provider Internal Medicine Cardiovascular Disease
DX: I25.10 Atherosclerotic heart disease of native coronary artery without angina pectoris (principal); Z95.1 Presence of aortocoronary bypass graft
CPT/HCPCS: 93798

== ENCOUNTER 2018-04-14 15:15 | Outpatient (RCR) | payer BC, SELFPAY ==
[2018-04-10 01:05] VITALS: BP 124/66; BP 132/68
== END 2018-05-10 23:59 ==
LOC: CR 15:15
PROVIDERS: Family Provider Family Medicine; PCP Family Medicine; Referring Provider Internal Medicine Cardiovascular Disease; Visit Provider Internal Medicine Cardiovascular Disease
DX: I25.10 Atherosclerotic heart disease of native coronary artery without angina pectoris (principal); Z95.1 Presence of aortocoronary bypass graft
CPT/HCPCS: 93798

== ENCOUNTER → 2018-04-17 06:33 | Outpatient (CLI) | payer BC, SELFPAY ==
--- NOTE | 2018-04-17 08:53 | STRESSREP ---
Stress Test Report Exercise myocardial perfusion stress test. 57-year-old male with a history of recent coronary bypass surgery and abnormal EKG findings and cardiac rehabilitation. Stress protocol: Resting EKG demonstrates normal sinus rhythm with a rate of 80 bpm normal intervals and noted resting blood pressure 142/80 mmHg. The patient exercised according to regular Luis protocol for a total duration of 9 minutes and 30 seconds. Patient completed 30 seconds to stage IV of the Luis protocol the maximum heart rate attained was 162 bpm which was 100% of maximum predicted heart rate the maximum workload was 10.9 metabolic equivalents. At rest there were no ST or T wave changes noted suggest ischemia peak exercise there was approximately 1.[address] depression noted noted in leads II and 0.[address] depression noted in lead III and aVF. No arrhythmias were noted the resting blood pressure 142/80 mmHg and a peak blood pressure 152/60 mmHg. Myocardial perfusion protocol. 15.0 mCi of technetium 99 sestamibi was injected at rest. Patient exercised according to regular Luis protocol for 9 minutes and 30 seconds attaining 100% maximum predicted heart rate a workload of 10.9 metabolic equivalents. At peak exercise 44.0 mCi of technetium 99m sestamibi was injected stress images were obtained stress and rest images were reconstructed and compared in the short axis vertical and horizontal gated images were also obtained Perfusion SPECT analysis: Review of the stress images demonstrate normal uptake of tracer noted in the septum anterior wall and inferior wall. The lateral wall demonstrates a medium perfusion defect noted on the stress images with complete reversibility noted on the resting images. The above is suggestive of lateral ischemia present. Gated SPECT analysis: The gated ejection fraction is 58%. Conclusion: Abnormal exercise myocardial perfusion stress test with evidence of lateral ischemia. Preserved ejection fraction. Good functional capacity.
[2018-04-17 11:20] LABS: Absolute Lymphocyte Count 2.08 X10^3/ul (0.83-4.51); Absolute Neutrophil Count 3.7 X10^3/uL (2.0-7.7); Basophil# 0.02 X10^3/uL; Basophil% 0.3 % (0-1); Eosinophil# 0.21 X10^3/uL; Eosinophils% 3.1 % (0-5); Hematocrit 45.7 % (40-54); Hemoglobin 15.9 g/dl (13.0-16.5); Lymphocyte # 2.08 X10^3/ul (4.0); Lymphocyte % 30.7 % (19-41); Mean Corp Hgb Conc 34.8 g/gl (32-36); Mean Corpuscular Hgb 29.3 pg (27.0-32.0); Mean Corpuscular Volume 84.3 fL (80-94); Mean Platelet Vol. 10.6 fl (6.2-12.0); Monocyte# 0.72 X10^3/uL; Monocyte% 10.6 % (0-10); Neutrophil # 3.74 X10^3/uL (2.7-7.7); Neutrophil % 55.2 % (47-70); Platelet Count 237 K/mm3 (150-450); RBC Distribution Width CV 13.1 % (11.6-14.6); RBC Distribution Width SD 40.9 fl (35.1-43.9); Red Blood Count 5.42 M/mm3 (4.6-6.2); White Blood Count 6.8 K/mm3 (4.4-11.0)
[2018-04-17 11:21] LABS: POSITIVE COUNT NO; POSITIVE DIFFERENTIAL NO; POSITIVE MORPHOLOGY NO
[2018-04-17 11:27] LABS: International Normalized Ratio 1.1; Prothrombin Time (Protime)PT. 14.3 SECONDS (11.7-14.9)
[2018-04-17 11:47] LABS: Anion Gap 7 (5-15); BUN 13 mg/dL (7-18); BUN/Creat Ratio 13.3 RATIO (10-20); Calcium,Total 8.9 mg/dL (8.5-10.1); Chloride 109 mmol/L (98-107); Creatinine, Serum 0.98 mg/dL (0.70-1.30); EST Glomerular Filtration Rate 83 mL/min (>60); Est Glom Filt Rate - Afr Amer 101 mL/min (>60); Glucose 89 mg/dL (74-106); Potassium 4.1 mmol/L (3.5-5.1); Sodium Level 140 mmol/L (136-145)
== END ==
PROVIDERS: Family Provider Family Medicine; PCP Family Medicine; Referring Provider Internal Medicine Cardiovascular Disease; Visit Provider Internal Medicine Cardiovascular Disease
DX: I25.10 Atherosclerotic heart disease of native coronary artery without angina pectoris (principal); I25.119 Atherosclerotic heart disease of native coronary artery with unspecified angina pectoris; R07.9 Chest pain, unspecified; E78.5 Hyperlipidemia, unspecified; R94.39 Abnormal result of other cardiovascular function study; Z95.1 Presence of aortocoronary bypass graft
CPT/HCPCS: 36415; 78452; 80048; 85025; 85610; 93017; A9500; A4216

== ENCOUNTER 2018-04-19 09:32 | Observation (INO) | payer BC, SELFPAY ==
[2018-04-18 09:29] VITALS: BMI 29.7
[2018-04-19] VITALS (25 sets, daily range): BP systolic 101–146; BP diastolic 37–85; PULSE 63–83; RESP 9–16; TEMP 36.4–36.7; O2SAT 94–99; BMI 30.5
--- NOTE | 2018-04-19 08:38 | CL.D_ITS ---
Patient Name: FIORELLA MEDINA Study Date: 04/19/2018 Performing: Eric Mcnair MD Ht: 74.01 inches 188 cm : 1960 Wt: 231.49 lbs 105 kg Age: 57 Gender: male BSA: 2.31 PROCEDURE(S) PERFORMED DP62-GCQ/COR/CABG DC11-AO ROOT ANGIO WITH HEART CATH BF68-XEN W OR WO PTCA, SINGLE CORONARY ARTERY CLINICAL PROFILE AND INDICATIONS Indications: Stable Known CAD Heart Failure: None Stress/Imaging Stress Test w/SPECT MPI: Yes Result: Positive Intermediate RiskStress Test with SP ECT MPI: Positive Intermediate Risk CAD Presentations: Stable angina. CONCLUSIONS Coronary artery bypass grafting with patent left internal mammary artery to left anterior descending artery and free right internal mammary artery to the diagonal vessel. The saphenous vein graft to th e obtuse marginal branch and posterolateral vessel are occluded RECOMMENDATIONS Will recommend PCI of the enterprise circumflex artery.. DESCRIPTION OF PROCEDURE The patient arrived to the procedure lab. The risks and benefits of the procedure as well as a full d escription of our services here and current unavailability of surgical backup were fully explained to the patient and/or their significant other prior to the catheterization. The Timeout was completed, verifying the correct patient and procedure. The patient's procedural site was prepped and draped in the usual fashion. Local anesthetic was given subcutaneously to right groin region with Lidocaine 2%. Using a modified Seldinger technique, arterial access was obtained via the right femoral artery, a 5 Fr sheath was inserted. Left Coronary Artery selective angiography was performed in multiple views u sing a 5 Fr. JL4 catheter. Right Coronary Artery selective angiography was then performed in multiple views using a 5 Fr. 3DRC (Daniel) catheter. Right internal mammary artery graft to the Diagonal se lective angiography was performed in multiple views using a 5 Fr. 3DRC (Daniel) catheter. Left inte rnal mammary artery graft to the LAD selective angiography was performed in multiple views using a 5 Fr. IM catheter. Ascending (root) aorta selective angiography was then performed in single view using the pigtail catheter. Ascending (root) aorta selective angiography was then performed in single view using the pigtail catheter. CORONARY ANGIOGRAPHY DOMINANCE: Left Dominant LEFT HEART ASSESSMENT Left Ventricular Ejection Fraction: Not assessed LEFT MAIN: Mild calcification LEFT ANTERIOR DECENDING ARTERY: PROX LAD: is occluded CIRCUMFLEX ARTERY: PROX CIRC: Long area of 70% stenosis followed by a mildly diseased segment and then a mid segment are a of 80% stenosis. The vessel then continues and gives off posterolateral and posterior descending v essels with mild to moderate diffuse disease noted. RIGHT CORONARY ARTERY: Mild luminal irregularities GRAFTS: NO graft to the Mid LAD is patent Saphenous Vein graft to the LPDA is totally occluded PATRICIA graft to the diagonal is patent Saphenous Vein graft to the 2nd OM is totally occluded AORTIC ROOT: Only one bypass graft noted. COMPLICATIONS PROCEDURE MEDICATIONS Versed 1 mg IV Fentanyl 50 mcg IV Versed 1 mg IV Baby Aspirin (81mg) 1 Tabs PO @ 04/19/2018 07:06:15 Heparin 6000 unit(s) IV 04/19/2018 08:21:48 Nitro 200 mcg IC 04/19/2018 08:36:46 IV Bolus: .9 NaCl ml total 04/19/2018 08:21:56 SUMMARY OF HEMODYNAMIC DATA Time AIR REST ECG 07:09:22 AO 117/67 (88) SA 07:37:44 Signed By Eric Mcnair MD On 04/19/2018 08:37:36 Eric Mcnair MD
--- NOTE | 2018-04-19 09:45 | CL.I_ITS ---
Patient Name: FIORELLA MEDINA Study Date: 04/19/2018 Performing: Didier Vasquez MD Ht: 74.01 inches 188 cm : 1960 Wt: 231.49 lbs 105 kg Age: 57 Gender: male BSA: 2.31 PROCEDURE(S) PERFORMED DC11-AO ROOT ANGIO WITH HEART CATH [id number]-[id number] W OR WO PTCA, SINGLE CORONARY ARTERY CLINICAL PROFILE AND CO-MORBIDITIES Indications: Stable Known CAD, New Onset Angina <= 2 months, Stable Known CAD Heart Failure: None Stress/Imaging Stress Test w/SPECT MPI: Yes Result: Positive Intermediate Risk Stress Test with S PECT MPI: Positive Intermediate Risk Angina Classification Anginal Classification w/in 2 Weeks: CCS II CAD Presentations: Stable angina. Unstable angina. Comorbidities/Risk Factors: Hypertension Dyslipidemia Prior CABG CONCLUSIONS Successful PTCA/KATHYA mid/distal LCX with a 2.5 x 38 Promus Synergy, post dilated throughout with a 3.0 x 12 NC balloon; 75%-->0%, no dissection. Successful PTCA/KATHYA ostial/proximal LCX with a 2.5 x 20 Promus Synergy, post dilated throughout to os tium with a 3.0 x 12 NC balooon at 14 shaina; 75%-->0%, no dissection. Unable to cannulate OM branch with run through wire due to what appears to be HOSPITALITY JOB TITLES. Pt had identical symptoms during balloon inflation as he has had at home; unable to Mynx due to anato my; d/w Dr Mcnair. Unable to Mynx due to anatomy; d/w Dr Mcnair. RECOMMENDATIONS DESCRIPTION OF PROCEDURE The patient arrived to the procedure lab. The risks and benefits of the procedure as well as a full d escription of our services here and current unavailability of surgical backup were fully explained to the patient and/or their significant other prior to the catheterization. The Timeout was completed, verifying the correct patient and procedure. The patient's procedural site was prepped and draped in the usual fashion. Local anesthetic was given subcutaneously to right groin region with Lidocaine 2% Using a modified Seldinger technique,arterial access was obtained via the right femoral artery, a 5Fr sheath was inserted. Left Coronary Artery selective angiography was performed in multiple views usin g a 5 Fr. JL4 catheter. Right Coronary Artery selective angiography was then performed in multiple vi ews using a 5 Fr. 3DRC (Daniel) catheter. Right internal mammary artery graft to the Diagonal selec tive angiography was performed in multiple views using a 5 Fr. 3DRC (Daniel) catheter. Left interna l mammary artery graft to the LAD selective angiography was performed in multiple views using a 5 Fr. IM catheter. Ascending (root) aorta selective angiography was then performed in single view using th e pigtail catheter. Ascending (root) aorta selective angiography was then performed in single view us ing the pigtail catheter. Right iliac selective angiography was then performed in single view to [facility] for closure placement.The images were reviewed and options discussed. A decision was then made to p roceed with an Intervention, IVUS or other adjunct procedure. Arterial sheath was exchanged for a 6 Fr Sheath. EBU 3.75 Guide catheter was inserted and engaged int o the LCA. BMW [place] Guide wire was advanced to the Circumflex. BMW [place] (2) Guide wire was inserted as a gely wire Runthrough Wire Guide wire was inserted as a gely wire in the OM 2.0 x 12 E merge Balloon catheter was inserted. Balloon catheter was advanced across lesion in the first obtuse marginal, proximal. Over Runthrough Wire 2.0 x 12 Emerge Balloon catheter was inserted. Balloon noemy ter was advanced across lesion in the circumflex, distal. PTCA balloon inflated at 8 atms for 9 secs. PTCA balloon inflated at 8 atms for 6 secs. Balloon catheter was repositioned to additional lesion i n the circumflex, mid. PTCA balloon inflated at 8 atms for 11 secs. Balloon catheter was repositioned to additional lesion in the circumflex, proximal. PTCA balloon inflated at 10 atms for 7 secs. 2.5 x 38 Synergy Drug Eluting stent was inserted. Drug Eluting stent was advanced across the lesion in the circumflex, distal. Angiogram performed pre stent deployment. Angiogram performed post stent deploym ent. 2.5 x 20 Synergy Drug Eluting stent was inserted. Drug Eluting stent was advanced across the les ion in the circumflex, proximal. Angiogram performed pre stent deployment. 3.0 x 12 NC Emerge Balloon catheter was inserted. Balloon catheter was advanced across lesion in the circumflex, distal. Angiog katheryn performed pre balloon dilatation. Balloon catheter was advanced across lesion in the circumflex, mid. Angiogram performed pre balloon dilatation. Balloon catheter was repositioned to additional lesi on in the circumflex, proximal. 3.0 x 12 NC Emerge Balloon catheter was reinserted Balloon catheter w as advanced across lesion in the circumflex, distal. Balloon catheter was advanced across lesion in t he circumflex, mid. Balloon catheter was repositioned across lesion in the circumflex, proximal. Th e arterial sheath was sutured in place and capped INTERVENTION INFORMATION LESION SITE: Circumflex (Distal) Lesion Complexity: High/C, lesion at bifurcation: No, thrombus present: No, lesion length: 38 mm, cul prit lesion: Yes Pre Stenosis: 75 % Pre intervention DELGADO flow: 3 PROCEDURE: Drug Eluting Stent with pre and post dilatation Post Stenosis: 0 % Post intervention [place] flow: 3 Lesion Devices: Medtronic 6 Fr EBU3.75 100cm Guide Catheter [place] .014 BMW [place] Straight 190cm Soren Sci EMERGE MR 2.00x12 BALLOON Robledo .014 BMW [place] Straight 190cm Terumo .014 Runthrough Extra Floppy 180cm straight Soren Sci Synergy MR KATHYA 2.50x38 Soren Sci NC EMERGE MR 3.00x12 BALLOON LESION SITE: Circumflex (Mid) Lesion Complexity: High/C, lesion at bifurcation: Yes, thrombus present: No, lesion length: 20 mm, cu lprit lesion: No Pre Stenosis: 75 % Pre intervention DELGADO flow: 3 PROCEDURE: Drug Eluting Stent with pre and post dilatation Post Stenosis: 0 % Post intervention [place]O flow: 3 Lesion Devices: Medtronic 6 Fr EBU3.75 100cm Guide Catheter Soren Sci EMERGE MR 2.00x12 BALLOON Robledo .014 BMW [place] Straight 190cm Soren Sci NC EMERGE MR 3.00x12 BALLOON LESION SITE: Circumflex (Proximal) Lesion Devices: Medtronic 6 Fr EBU3.75 100cm Guide Catheter Soren Sci EMERGE MR 2.00x12 BALLOON Robledo .014 BMW [place] Straight 190cm Soren Sci Synergy MR KATHYA 2.50x20 Soren Sci NC EMERGE MR 3.00x12 BALLOON COMPLICATIONS No Complications PROCEDURE MEDICATIONS Versed 1 mg IV Fentanyl 50 mcg IV Versed 1 mg IV Versed 1 mg IV Baby Aspirin (81mg) 1 Tabs PO @ 04/19/2018 07:06:15 Heparin 6000 unit(s) IV 04/19/2018 08:21:48 Heparin 4000 unit(s) IV 04/19/2018 08:50:43 Nitro 200 mcg IC 04/19/2018 08:36:46 Nitro 200 mcg IC 04/19/2018 08:36:46 IV Bolus: .9 NaCl 550 ml total 04/19/2018 08:21:56 IV Fluids: .9 NaCl decreased to 150 ml/hr 04/19/2018 09:31:22 SUMMARY OF HEMODYNAMIC DATA Time AIR REST ECG 07:09:22 AO 117/67 (88) SA 07:37:44 Signed By Didier Vasquez MD On 04/19/2018 09:44:41 Didier Vasquez MD
--- NOTE | 2018-04-19 09:45 | EKG12_ITS ---
Test Reason : Blood Pressure : / mmHG Vent. Rate : 076 BPM Atrial Rate : 076 BPM P-R Int : 158 ms QRS Dur : 086 ms QT Int : 384 ms P-R-T Axes : 052 -26 070 degrees QTc Int : 432 ms Normal sinus rhythm Leftward axis Poor R wave progression Confirmed by VIVIANA OLMOS, CHARISSA ([id number]), metropolitan editor KINJAL RAMIREZ ([id number] on 04/27/2018 1:12:44 PM Referred By: Eric Mcnair Confirmed By:CHARISSA MICHELLE MD
[2018-04-19 10:20] LABS: ACT Activated Clotting Time 235 sec (74-137)
--- NOTE | 2018-04-19 10:46 | CRPHASE1 ---
Patient Data/Charges Former Patient:: Phase II Reason Not Completed:: Mr. Beltran has already been in cardiac rehab and has recieved the book will come back to rehab in the future. Risk Factors/Lifestyle Family History: Family History (Last Updated 04/17/18 @ 11:40 by Nichole Blank) Mother Cancer Alzheimers disease Father CAD (coronary artery disease) Myocardial infarction CVA (cerebral vascular accident)
[2018-04-19] MEDS: 0.9% Normal Saline 1,000 ML 150 ML IV (11:19)
[2018-04-19 12:15] LABS: ACT Activated Clotting Time 153 sec (74-137)
[2018-04-19] MEDS: Acetaminophen 325 MG Tablet 650 MG PO ×2 (12:58→23:55)
[2018-04-19] MEDS: Pravastatin 40 MG Tablet PO (21:39)
[2018-04-19] MEDS: Metoprolol(XL)Succ 100 MG Tablet PO (21:39)
[2018-04-19] MEDS: MELATONIN 10 MG TABLET PO (23:55)
[2018-04-20] VITALS (9 sets, daily range): BP systolic 96–134; BP diastolic 31–74; PULSE 58–71; RESP 12–16; TEMP 36.7–36.8; O2SAT 93–97
[2018-04-20 04:31] LABS: Hematocrit 45.2 % (40-54); Mean Corp Hgb Conc 35.4 g/gl (32-36); Mean Corpuscular Volume 84.6 fL (80-94); Mean Platelet Vol. 10.4 fl (6.2-12.0); Platelet Count 215 K/mm3 (150-450); RBC Distribution Width CV 13.3 % (11.6-14.6); Red Blood Count 5.34 M/mm3 (4.6-6.2); White Blood Count 7.5 K/mm3 (4.4-11.0)
[2018-04-20 04:33] LABS: Anion Gap 7 (5-15); BUN 15 mg/dL (7-18); Calcium,Total 8.4 mg/dL (8.5-10.1); Chloride 109 mmol/L (98-107); Creatinine, Serum 0.88 mg/dL (0.70-1.30); EST Glomerular Filtration Rate 93 mL/min (>60); Est Glom Filt Rate - Afr Amer 113 mL/min (>60); Estimated Creatinine Clearance 102.14 ml/min; Glucose 123 mg/dL (74-106); Potassium 4.1 mmol/L (3.5-5.1); Sodium Level 141 mmol/L (136-145)
[2018-04-20 04:51] LABS: Scan Indicated on CBC? Y/N NO
--- NOTE | 2018-04-20 07:14 | PCM.PN.CARD ---
Subjectve: Patient seen and evaluated. Appears to be doing well. No complaints. Objective: Vital Signs Temp Pulse Resp BP Pulse Ox 98.0 F 60 13 105/49 L 95 04/20/18 04:00 04/20/18 06:00 04/20/18 06:00 04/20/18 06:00 04/20/18 06:00 Oxygen Flow Rate (L/min) 2 Oxygen Delivery Method Room Air Weight: 228 lb 13.437 oz Body Mass Index (BMI) 30.5 Intake and Output for Last 24 Hours 04/18/18 04/19/18 04/20/18 23:59 23:59 23:59 Intake Total 2070 / 2070 480 / 480 Output Total 2650 / 2650 450 / 450 Balance -580 / -580 General: Awake, Alert, Oriented x 3 HEENT: PERRL, EOMI, Sclera Non Icteric Neck: Supple, Good ROM, No Lymph Node Enlargement Lungs: Clear to auscultation Cardiovascular: Regular Rhythm, Normal S1, Normal S2, No Murmurs, No Rubs, No Gallops Vascular: No Carotid Bruits, Normal Femoral Pulses, Normal Radial Pulses, Normal Dorsalis Pedal Pulse, Normal Posterior Tibial Pulses Abdomen: Bowel Sounds Present, Soft, Non Tender, No HSM, No Organomegaly Extremities: No Cyanosis, No Clubbing, No edema Neurological: No Focal Motor or Sensory Deficit 04/20/18 04:15: WBC 7.5, RBC 5.34, Hgb 16.0, Hct 45.2, MCV 84.6, MCH 30.0, MCHC 35.4, RDW 13.3, RDW Differential 41.0, Plt Count 215, MPV 10.4 04/20/18 04:15: Sodium 141, Potassium 4.1, Chloride 109 H, Carbon Dioxide 25.0, Anion Gap 7, BUN 15, Creatinine 0.88, Est GFR (MDRD) Af Amer 113, Est GFR (MDRD) Non-Af 93, BUN/Creatinine Ratio 17.0, Glucose 123 H, Calcium 8.4 L Rhythm: EKG: ECHO: Stress Test: Cardiac Cath: PCI: CT Surgery: Holter monitor: EPS: PPM: CXR: Chest CT Scan: Medical Necessity - Tobacco Use Smoking Status: Never smoker Assessment/Plan 1. Status post angioplasty and stenting of the [place] left circumflex artery following cardiac catheterization. This morning he appears to be doing well. There are no groin issues. His hemoglobin is stable and his creatinine is also stable. EKG is without any abnormalities. The patient will be discharged for outpatient follow-up as well as cardiac rehabilitation..
--- NOTE | 2018-04-20 07:29 | DCINST_ITS ---
Discharge Diet: Low fat/ Low Cholesterol Lifting Restrictions: 10 pounds and also avoid any pushing or pulling for 3 days after your test. Additional Activity Instructions:: You must have someone drive you home. Do not drive until instructed by your doctor. You must have someone stay with you all night after your test. Rest in bed or on the couch until the next morning. Limit the number of times you go up and down stairs the day of your test. Apply pressure to the puncture site if you sneeze or cough. Call your doctor if your incision/area has: Increased Pain/ Swelling, Increased Redness, Foul Smelling Discharge, Swelling at the incision site Call your doctor if you observe: Fever of 101 or Higher Suture Line Care: Avoid Pulling/Pushing Additional Dressing/Incision Instructions:: Keep the dressing (bandage) on until the next morning. You may then shower, but do not take a tub bath for 5 days after your test. It is normal to have some tenderness and discomfort at the puncture site. Sometimes bruising also occurs. However, if pain, numbness, or coldness occurs below the puncture site (in your leg, toes, arms or fingers) call your doctor at once. You may have a small, marble sized knot at the puncture site. This is normal. Do not rub it. It will go away in 4-6 weeks. Bleeding can occur from the area where the puncture was done. Blood may spurt or drip from the site. If blood spurts, apply pressure right away to stop bleeding and call 911. Although rare, bleeding into the tissue (hematoma) can also occur. If this happens, a large, firm area goose egg under the skin will appear. If a ny of these occur, lie down as flat as you can and have someone apply firm pressure to the cath site with a gauze pad or a clean washcloth for 10-15 minutes. Call 911 or go to the Emergency Department. Allergies/Adverse Reactions: Allergies No Known Allergies Allergy (Unverified 04/17/18 11:37) Medications to take at Discharge esomeprazole magnesium 40 mg capsule,delayed release 40 mg PO QDAY 12/20/17 fluticasone 50 mcg/actuation nasal spray,suspension 2 spray INTRANASAL QDAY 12/20/17 melatonin 10 mg capsule 10 mg PO HS PRN 12/21/17 pravastatin 40 mg tablet 40 mg PO QHS tab 12/21/17 acetaminophen 325 mg tablet 650 mg PO Q6H PRN tab 01/05/18 metoprolol succinate ER 100 mg tablet,extended release 24 hr 100 mg PO DAILY #90 tab 04/10/18 aspirin 81 mg tablet,delayed release 162 mg PO QDAY tab 04/17/18 clopidogrel 75 mg tablet 75 mg PO DAILY 04/17/18 nitroglycerin 0.4 mg sublingual tablet 0.4 mg SUBLINGUAL Q5-15M PRN #25 tab 04/17/18 Zolpidem Tartrate [Ambien] 10 mg PO PRN 04/19/18 Primary Care Physician: Tera Vázquez III, MD [Primary Care Provider] - Test Results: Test results from this visit will be discussed in further detail at your follow- up appointment, if applicable. Please Follow Up With: Cardiac Rehabilitation Info Cardiac Rehabilitation Program Information: Cardiac Rehabilitation is important for patients like you who are recovering from a heart problem. Cardiac rehabilitation programs are recognized as integral to the continued care of the patient with coronary heart disease. The cardiac rehabilitation program is designed to optimize a patient's physical, psychological, and social functioning. Health hospice patient care secretary work in cardiac rehabilitation programs and assist you with getting the treatments you need to get stronger and healthier - like exercise, healthy eating habits, and medications. Cardiac rehabilitation has been show to help people with heart problems live longer and have better life enjoyment than people who do not go to cardiac rehabilitation. Please contact the Cardiac Rehabilitation Program at [facility] at in two weeks if you have not heard from them.
--- NOTE | 2018-04-20 09:45 | EKG12_ITS ---
Test Reason : AM Blood Pressure : / mmHG Vent. Rate : 071 BPM Atrial Rate : 071 BPM P-R Int : 154 ms QRS Dur : 072 ms QT Int : 392 ms P-R-T Axes : 064 -15 094 degrees QTc Int : 425 ms Normal sinus rhythm Nonspecific ST and T wave abnormality Abnormal ECG Confirmed by VIVIANA OLMOS, CHARISSA ([id number]), film editor supervisor KINJAL RAMIREZ ([id number]) on 04/27/2018 1:10:49 PM Referred By: Eric Mcnair Confirmed By:CHARISSA MICHELLE MD
== END 2018-04-20 08:00 | disposition home or self-care (01) ==
LOC: CLSP 04-20 07:44 → ICU 04-20 07:44
PROVIDERS: Internal Medicine Cardiovascular Disease; Admitting Provider Internal Medicine Cardiovascular Disease; Family Provider Family Medicine; PCP Family Medicine; Referring Provider Internal Medicine Cardiovascular Disease; Visit Provider Internal Medicine Cardiovascular Disease
DX: I25.118 Atherosclerotic heart disease of native coronary artery with other forms of angina pectoris (principal); I10 Essential (primary) hypertension; E78.5 Hyperlipidemia, unspecified; Z95.1 Presence of aortocoronary bypass graft; Z79.899 Other long term (current) drug therapy; Z79.02 Long term (current) use of antithrombotics/antiplatelets; Z79.82 Long term (current) use of aspirin; G47.33 Obstructive sleep apnea (adult) (pediatric); K21.9 Gastro-esophageal reflux disease without esophagitis; Z82.49 Family history of ischemic heart disease and other diseases of the circulatory system; R94.39 Abnormal result of other cardiovascular function study; R07.89 Other chest pain; R93.1 Abnormal findings on diagnostic imaging of heart and coronary circulation
CPT/HCPCS: 80048; 85027; 85347; 92928; 93005; 93455; 93567; 96360; 96361; 99152; 99153; 99218; J7030; J7040; Q9967; A4216; C1725; C1769; C1874; C1887; C9600; G0378; G0379

== ENCOUNTER → 2018-05-18 06:24 | Outpatient (CLI) | payer BC, SELFPAY ==
[2018-05-18 07:52] LABS: AST(SGOT) 19 U/L (15-37); Alanine Aminotransfer ALT/SGPT 27 U/L (16-61); Albumin, Serum 3.6 g/dL (3.2-5.0); Alkaline Phosphatase 92 U/L (45-117); Bilirubin, Direct 0.15 mg/dL (0.00-0.30); Cholesterol 143 mg/dL (200); Globulin 3.2 g/dL (2.2-4.2); High Density Lipoprotein 32 mg/dL; Protein, Total 6.8 g/dL (6.4-8.2); Triglycerides 146 mg/dL; Very Low Density Lipoprotein 29 mg/dL (5-40)
== END ==
PROVIDERS: Family Provider Family Medicine; PCP Family Medicine; Referring Provider Internal Medicine Cardiovascular Disease; Visit Provider Internal Medicine Cardiovascular Disease
DX: Z95.1 Presence of aortocoronary bypass graft (principal)
CPT/HCPCS: 36415; 80061; 80076

== ENCOUNTER → 2018-05-25 10:26 | Outpatient (CLI) | payer BC, SELFPAY ==
--- NOTE | 2018-05-25 10:52 | PCM.CR.HP2 ---
CR - History & Physical - General Arrival date:: 05/25/18 Arrival time:: 10:52 Date of Referral:: 05/25/18 Date of CR Evaluation:: 05/25/18 Referring Physician: Dr. Aure Mcnair Primary Diagnosis: PCI with stent - History of Present Cardiac Event Onset Date: Enter Onset Date of cardiac illnesses in Comment field below Current stable Angina Pectoris:: No Acute Myocardial Infarction within 12 months:: No Coronary Artery Bypass Graft:: Yes - 12/26 Heart valve replacement or repair:: No PTCA or coronary stenting:: Yes - 04/19/18 Heart or Heart-Lung Transplant:: No Heart Failure EF <35%:: No Type of Symptoms:: ST depression and sl chest tightness Interventions with present event:: stented 2 of his bypasses Were there any complications?: no - Medications Home Medications: Ambulatory Orders Medication Instructions Recorded esomeprazole magnesium 40 mg 40 mg PO QDAY 12/20/17 capsule,delayed release fluticasone 50 mcg/actuation nasal 2 spray INTRANASAL QDAY 12/20/17 spray,suspension melatonin 10 mg capsule 10 mg PO HS PRN 12/21/17 acetaminophen 325 mg tablet 650 mg PO Q6H PRN tab 01/05/18 metoprolol succinate ER 100 mg 100 mg PO DAILY #90 tab 04/10/18 tablet,extended release 24 hr aspirin 81 mg tablet,delayed 162 mg PO QDAY tab 04/17/18 release clopidogrel 75 mg tablet 75 mg PO DAILY 04/17/18 nitroglycerin 0.4 mg sublingual 0.4 mg SUBLINGUAL Q5-15M PRN #25 04/17/18 tablet tab Zolpidem Tartrate [Ambien] 10 mg PO PRN 04/19/18 pravastatin 40 mg tablet 40 mg PO QHS #90 tab 05/19/18 - Allergies Allergies/Adverse Reactions: Allergies No Known Allergies Allergy (Unverified 05/19/18 09:52) - Sleep Disorder Evaluation Hx of Sleep Apnea: Yes Advanced Directives - Advanced Directives Power of Roll Table Operator: No Living Will: No Advance Directives Information Provided: Yes Advance Directives on File: No DNR Order?:: No Past Medical History - Past Medical Illness Medical History: Past Medical History (Last Reviewed 05/19/18 @ 10:50 by Eric Mcnair MD) Atherosclerosis of coronary artery bypass graft without angina pectoris (Chronic) I25.810 [id number] CX w/ 2.5 X 38 mm Synergy and KATHYA to Proximal Cx w/ 2.5 X 20 mm Synergy 04/19/18 CABG X4 NO to LAD, free PATRICIA to DX, reverse SVG to OM and reverse SVG to left posterior lateral branch 12/26/17 Atherosclerotic heart disease of [place] coronary artery without angina pectoris (Chronic) I25.10 CABG X4 NO to LAD, free PATRICIA to DX, reverse SVG to OM and reverse SVG to left posterior lateral branch 12/26/17 Hyperlipidemia (Chronic) E78.5 GERD (gastroesophageal reflux disease) K21.9 Obstructive sleep apnea G47.33 Pneumothorax J93.9 Atherosclerosis of coronary artery of [place] heart with angina pectoris (Inactive) I25.119 CABG X4 NO to LAD, free PATRICIA to DX, reverse SVG to OM and reverse SVG to left posterior lateral branch per Dr. Rafi Hart @ [facility]: - Past Surgical History Surgical History: Past Surgical History (Last Reviewed 05/19/18 @ 10:50 by Eric Mcnair MD) History of coronary artery stent placement (Resolved) Onset Date: 04/19/18 Z95.5 [id number] CX w/ 2.5 X 38 mm Synergy and KATHYA to Proximal Cx w/ 2.5 X 20 mm Synergy 04/19/18 H/O coronary artery bypass surgery (Resolved) Onset Date: 12/26/17 Z95.1 CABG X4 NO to LAD, free PATRICIA to DX, reverse SVG to OM and reverse SVG to left posterior lateral branch 12/26/[address] Rafi Hart @ [facility]: History of appendectomy Z90.49 - Family History Summary Family History: Family History (Last Reviewed 05/19/18 @ 10:50 by Eric Mcnair MD) Mother , Age 80 Cancer Alzheimers disease Father , Age 84 CAD (coronary artery disease) [place] in his 50's CABG Myocardial infarction CVA (cerebral vascular accident) Social History - Smoking History Smoking Status: Never smoker - Alcohol Use Alcohol Usage: No - Substance Abuse Hx Substance Use: No - Occupation Occupation (List type of work in comments):: Employed Returned to work on:: 04/22/18 - Hobbies, Recreation, Social Activities Hobbies: Other - golf , hunting Recreational Activities: I am able to engage in all my recreational activities Social Environment - Status Marital Status: - Current Living Arrangements Living Environment:: Spouse - Children How many children do you have?: 3 Do any of your children live nearby?: No - Safety Do you feel safe in your surroundings?: Yes - Assistance Do you need any assistance at home?: no Review of Systems - Review of Systems Hints: Right click = Denies (Slash). Left click = Reports ([place]) Review of Present Symptoms: Reports: Fatigue, Appetite - Normal, Appetite - Special Diet, Sleep - Normal. Denies: Shortness of Breath at Rest, Shortness of Breath with Exertion, PVD, Operative Discomfort, Angina, Wound Healing, Dizziness/Lightheadedness, Heart Arrhythmia/Irregularities, Sexual Changes - Pain Is Patient Pain Free?: Yes Risk Factor Assessment - Chief Complaint Chief Complaint: cardiac rehab again. - Pulse Pulse Rate: 78 Pulse Rhythm: Regular - Hypertension How long have you been treated?: no - Stress Stress: Recent, Long-standing, Work-related, Home/Family - Diabetes Nutrition Referral for Diabetes: No - Obesity Height: 6 ft 2 in Weight:: 232 lb Weight in Pounds: 232.0 lbs Body Mass Index (BMI): 29.7 Desired Body Weight: 186 Realistic Weight Goal (Loss of 1-2 lbs/week): 220 Nutritional Referral for Obesity: Yes - Physical Inactivity Physical Inactivity: Reg Exercise 30 min/day - Risk Stratification Risk Guidelines: Lowest Risk: Risk Factor for Smoking, Risk Factor for Diabetes, Risk Factor for Hypertension, Risk Factor for Sedentary Lifestyle, Moderate Risk: Risk Factor for Dyslipidemia, Risk Factor for Obesity, Risk Factor for Depression - For Smoking Smoking Risk Guidelines: Smoking Low Risk: None or quit greater than 6 months ago. Smoking Moderate Risk: Smoker or quit 6 months or less ago. Smoking High Risk: Smoker - For Dyslipidemia Dyslipidemia Risk Guidelines: Low Risk: Moderate Risk: High Risk: 15-25% fat 25.1-29% fat >/= 30% fat. <7% sat fat 7-9% sat fat >9% sat fat. <150 mg chol 150-299 mg chol >/= 300 mg chol. LDL <100 LDL 100-129 LDL >/= 130. Chol/HDL ratio <5.0 Chol/HDL ratio 5.0-6.0 Chol/HDL ratio >6.0. Triglycerides <100 Triglycerides 100-149 Triglycerides >/= 150 - For Diabetes Mellitus Diabetes Risk Guidelines: Diabetes Low Risk: HgA1c <6.5% and/or FBG <120. Diabetes Moderate Risk: HgA1c 6.6-7.9% and/or FBG 120-180. Diabetes High Risk: HgA1c >/= 8% and/or FBG >180 - For Obesity/Overweight Obesity/Overweight Risk Guidelines: Obesity Low Risk: BMI <25.0. Obesity Moderate Risk: BMI 25-29.9. Obesity High Risk: BMI >/= 30.0 - For Hypertension Hypertension Risk Guidelines: Hypertension Low Risk: Systolic <120 and Diastolic <80. Hypertension Moderate Risk: Systolic 120-139 and Diastolic 80-89. Hypertension High Risk: Systolic >/= 140 and Diastolic >/= 90 - For Sedentary Lifestyle Sedentary Lifestyle Risk Guidelines: Sedentary Lifestyle Low Risk: >/= 1,500 kcal/week. Sedentary Lifestyle Moderate Risk: 700-1,499 kcal/week. Sedentary Lifestyle High Risk: < 700 kcal/week - For Depression Depression Risk Guidelines: Depression Low Risk: Not clinically depressed. Depression Moderate Risk: Mildly depressed. Depression High Risk: Clinically depressed - Family History Family History: Family History (Last Reviewed 05/19/18 @ 10:50 by Eric Mcnair MD) Mother Cancer Alzheimers disease Father CAD (coronary artery disease) Myocardial infarction CVA (cerebral vascular accident) Motivation - Motivation to Participate On a scale of 1 to 10, how prepared are you to commit to attending program?: 10
--- NOTE | 2018-05-25 10:56 | CR.HP_ITS ---
CR - History & Physical - General Arrival date:: 05/25/18 Arrival time:: 10:52 Date of Referral:: 05/25/18 Date of CR Evaluation:: 05/25/18 Referring Physician: Dr. Aure Mcnair Primary Diagnosis: PCI with stent - History of Present Cardiac Event Onset Date: Enter Onset Date of cardiac illnesses in Comment field below Current stable Angina Pectoris:: No Acute Myocardial Infarction within 12 months:: No Coronary Artery Bypass Graft:: Yes - 12/26 Heart valve replacement or repair:: No PTCA or coronary stenting:: Yes - 04/19/18 Heart or Heart-Lung Transplant:: No Heart Failure EF <35%:: No Type of Symptoms:: ST depression and sl chest tightness Interventions with present event:: stented 2 of his bypasses Were there any complications?: no - Medications Home Medications: Ambulatory Orders Medication Instructions Recorded esomeprazole magnesium 40 mg 40 mg PO QDAY 12/20/17 capsule,delayed release fluticasone 50 mcg/actuation nasal 2 spray INTRANASAL QDAY 12/20/17 spray,suspension melatonin 10 mg capsule 10 mg PO HS PRN 12/21/17 acetaminophen 325 mg tablet 650 mg PO Q6H PRN tab 01/05/18 metoprolol succinate ER 100 mg 100 mg PO DAILY #90 tab 04/10/18 tablet,extended release 24 hr aspirin 81 mg tablet,delayed 162 mg PO QDAY tab 04/17/18 release clopidogrel 75 mg tablet 75 mg PO DAILY 04/17/18 nitroglycerin 0.4 mg sublingual 0.4 mg SUBLINGUAL Q5-15M PRN #25 04/17/18 tablet tab Zolpidem Tartrate [Ambien] 10 mg PO PRN 04/19/18 pravastatin 40 mg tablet 40 mg PO QHS #90 tab 05/19/18 - Allergies Allergies/Adverse Reactions: Allergies No Known Allergies Allergy (Unverified 05/19/18 09:52) - Sleep Disorder Evaluation Hx of Sleep Apnea: Yes Advanced Directives - Advanced Directives Power of Drosser: No Living Will: No Advance Directives Information Provided: Yes Advance Directives on File: No DNR Order?:: No Past Medical History - Past Medical Illness Medical History: Past Medical History (Last Reviewed 05/19/18 @ 10:50 by Eric Mcnair MD) Atherosclerosis of coronary artery bypass graft without angina pectoris (Chronic) I25.810 [id number] CX w/ 2.5 X 38 mm Synergy and KATHYA to Proximal Cx w/ 2.5 X 20 mm Synergy 04/19/18 CABG X4 NO to LAD, free PATRICIA to DX, reverse SVG to OM and reverse SVG to left posterior lateral branch 12/26/17 Atherosclerotic heart disease of [place] coronary artery without angina pectoris (Chronic) I25.10 CABG X4 NO to LAD, free PATRICIA to DX, reverse SVG to OM and reverse SVG to left posterior lateral branch 12/26/17 Hyperlipidemia (Chronic) E78.5 GERD (gastroesophageal reflux disease) K21.9 Obstructive sleep apnea G47.33 Pneumothorax J93.9 Atherosclerosis of coronary artery of [place] heart with angina pectoris (Inactive) I25.119 CABG X4 NO to LAD, free PATRICIA to DX, reverse SVG to OM and reverse SVG to left posterior lateral branch per Dr. Rafi Hart @ [facility]: - Past Surgical History Surgical History: Past Surgical History (Last Reviewed 05/19/18 @ 10:50 by Eric Mcnair MD) History of coronary artery stent placement (Resolved) Onset Date: 04/19/18 Z95.5 [id number] CX w/ 2.5 X 38 mm Synergy and KATHYA to Proximal Cx w/ 2.5 X 20 mm Synergy 04/19/18 H/O coronary artery bypass surgery (Resolved) Onset Date: 12/26/17 Z95.1 CABG X4 NO to LAD, free PATRICIA to DX, reverse SVG to OM and reverse SVG to left posterior lateral branch 12/26/[address] Rafi Hart @ [facility]: History of appendectomy Z90.49 - Family History Summary Family History: Family History (Last Reviewed 05/19/18 @ 10:50 by Eric Mcnair MD) Mother , Age 80 Cancer Alzheimers disease Father , Age 84 CAD (coronary artery disease) [place] in his 50's CABG Myocardial infarction CVA (cerebral vascular accident) Social History - Smoking History Smoking Status: Never smoker - Alcohol Use Alcohol Usage: No - Substance Abuse Hx Substance Use: No - Occupation Occupation (List type of work in comments):: Employed Returned to work on:: 04/22/18 - Hobbies, Recreation, Social Activities Hobbies: Other - golf , hunting Recreational Activities: I am able to engage in all my recreational activities Social Environment - Status Marital Status: - Current Living Arrangements Living Environment:: Spouse - Children How many children do you have?: 3 Do any of your children live nearby?: No - Safety Do you feel safe in your surroundings?: Yes - Assistance Do you need any assistance at home?: no Review of Systems - Review of Systems Hints: Right click = Denies ([place]). Left click = Reports ([place]) Review of Present Symptoms: Reports: Fatigue, Appetite - Normal, Appetite - Special Diet, Sleep - Normal. Denies: Shortness of Breath at Rest, Shortness of Breath with Exertion, PVD, Operative Discomfort, Angina, Wound Healing, Dizz iness/Lightheadedness, Heart Arrhythmia/Irregularities, Sexual Changes - Pain Is Patient Pain Free?: Yes Risk Factor Assessment - Chief Complaint Chief Complaint: cardiac rehab again. - Pulse Pulse Rate: 78 Pulse Rhythm: Regular - Hypertension How long have you been treated?: no - Stress Stress: Recent, Long-standing, Work-related, Home/Family - Diabetes Nutrition Referral for Diabetes: No - Obesity Height: 6 ft 2 in Weight:: 232 lb Weight in Pounds: 232.0 lbs Body Mass Index (BMI): 29.7 Desired Body Weight: 186 Realistic Weight Goal (Loss of 1-2 lbs/week): 220 Nutritional Referral for Obesity: Yes - Physical Inactivity Physical Inactivity: Reg Exercise 30 min/day - Risk Stratification Risk Guidelines: Lowest Risk: Risk Factor for Smoking, Risk Factor for Diabetes, Risk Factor for Hypertension, Risk Factor for Sedentary Lifestyle, Moderate Risk: Risk Factor for Dyslipidemia, Risk Factor for Obesity, Risk Factor for Depression - For Smoking Smoking Risk Guidelines: Smoking Low Risk: None or quit greater than 6 months ago. Smoking Moderate Risk: Smoker or quit 6 months or less ago. Smoking High Risk: Smoker - For Dyslipidemia Dyslipidemia Risk Guidelines: Low Risk: Moderate Risk: High Risk: 15-25% fat 25.1-29% fat >/= 30% fat. <7% sat fat 7-9% sat fat >9% sat fat. <150 mg chol 150-299 mg chol >/= 300 mg chol. LDL <100 LDL 100-129 LDL >/= 130. Chol/HDL ratio <5.0 Chol/HDL ratio 5.0-6.0 Chol/HDL ratio >6.0. Triglycerides <100 Triglycerides 100- 149 Triglycerides >/= 150 - For Diabetes Mellitus Diabetes Risk Guidelines: Diabetes Low Risk: HgA1c <6.5% and/or FBG <120. Diabetes Moderate Risk: HgA1c 6.6-7.9% and/or FBG 120-180. Diabetes High Risk: HgA1c >/= 8% and/or FBG >180 - For Obesity/Overweight Obesity/Overweight Risk Guidelines: Obesity Low Risk: BMI <25.0. Obesity Moderate Risk: BMI 25-29.9. Obesity High Risk: BMI >/= 30.0 - For Hypertension Hypertension Risk Guidelines: Hypertension Low Risk: Systolic <120 and Diastolic <80. Hypertension Moderate Risk: Systolic 120-139 and Diastolic 80-89. Hypertension High Risk: Systolic >/= 140 and Diastolic >/= 90 - For Sedentary Lifestyle Sedentary Lifestyle Risk Guidelines: Sedentary Lifestyle Low Risk: >/= 1,500 kcal/week. Sedentary Lifestyle Moderate Risk: 700-1,499 kcal/week. Sedentary Lifestyle High Risk: < 700 kcal/week - For Depression Depression Risk Guidelines: Depression Low Risk: Not clinically depressed. Depression Moderate Risk: Mildly depressed. Depression High Risk: Clinically depressed - Family History Family History: Family History (Last Reviewed 05/19/18 @ 10:50 by Eric Mcnair MD) Mother Cancer Alzheimers disease Father CAD (coronary artery disease) Myocardial infarction CVA (cerebral vascular accident) Motivation - Motivation to Participate On a scale of 1 to 10, how prepared are you to commit to attending program?: 10
[2018-05-25 11:08] VITALS: PULSE 78; BMI 29.7
--- NOTE | 2018-05-25 11:57 | PCM.CR.ITP ---
General Information - General Information Admitting Diagnosis: ST segment deflection, abnormal stress test, PCI w/coronary stent placement - Education/Goals Barriers to Learning: None Individual Counseling: Initial Assessment: Abnormal Cholesterol Levels, High Blood Pressure, Overweight/Obesity, Hypertension Cardiac Rehabilitation Goals: 1. Maintain the individual as the primary focus of care. 2. To improve the patient's quality of life. 3. Identification of cardiac risk factors and provide cardiac risk factor management. 4. Enhance the psychosocial status of the patient. 5. Reconditioning enough to allow the patient to resume customary activities. 6. Control symptoms of cardiac disease Scale for measuring improvement of personal goals: Enter appropriate number in Comments. 2 = Unchanged. 3 = Slightly Better. 4 = Moderate Improvement. 5 = Met my Goal Personal Goals: Initial Assessment: Improve management of stress and emotions, Improve energy level, Participate in home exercise program, Improve muscle strength and endurance, Improve diet and eating habits (eat healthier), Control risk factors (learn risk factor modification) Exercise - Initial Assessment - Visit Date of Eval: 05/25/18 - start 05/26/18 - Stages of Change Stages of Change:: Action - Exercise Prescription Mode:: Treadmill, Rower, Airdyne, NuStep Angina with exercise?: No Target Heart Rate:: 120-128 - Hypertension Do any of the following apply?: Yes, Medication Resting Blood Pressure:: 128/66 - Intervention Home Exercise/Activity Goal:: Sitting Time <3 hrs/day - Education Goals:: Warm-up, RPE ABDOULAYE Scale, S/S, Safe Exercise, Self-Monitoring - Exercise Program Goals Exercise Program Goals: Aerobic Activity >30 min Nutrition - Initial Assessment - Program Goals Nutrition Program Goals: LDL <70. Total Cholesterol <200. HDL >45. Triglycerides <150. HgbA1C <7%. BMI <25 - Visit Date of Assessment:: 05/25/18 - Diabetes Diabetes:: No - Weight Management Height: 6 ft 2 in Weight:: 232 lb Body Fat %:: 29.2 - Intervention Referral to dietitian:: No Referral to Diabetic Clinic:: No Will attend diet classes:: Yes - Education Gave educational materials for:: Healthy eating Tobacco - Initial Assessment - Program Goals Tobacco Program Goals: Complete smoking cessation. Attend education classes. Improve Knowledge Test score - Stage of Change Stages of Change:: Action - Learning Barriers Learning Barriers: Ready to Learn - Family Support Do you have family support?: Yes - Tobacco Use Tobacco Use: Non-smoker Do you use smokeless tobacco?: No - Intervention Smoking Cessation Referral:: No Education Schedule Given:: Yes - Education Gave educational material for:: Coronary artery disease, Risk factors, Sexuality, Medical compliance, Cardiac A&P, Angina signs & symptoms Psychosocial - Initial Assess - Target Goals Target Goals: Assess presence or absence of depression. Using a valid screening tool, maximizes coping skills. Positive support system - Stages of Change Stages of Change:: Action - Psychosocial Test Tool Used:: HANDS Depression Questionnaire - Intervention PS - Interventions: Yes Attend Stress Management Classes, Yes Uses Stress Management Skills, No Referral to Mental Health, No Referral to [facility] Case Management, No Referral to Physician - Education Gave educational materials for:: Coping techniques, Signs & symptoms of depression, Stress management, Relaxation techniques - Patient/Program Goal Preventative Medication(s):: Aspirin, Clopidogrel, Beta adriana, Statin/lipid - Assistive Devices Assistive Devices:: None Fall Risk Assessed:: Yes Patient Health Questionnaire Initial Assessment 1. Little interest or pleasure in doing things: Not at all 2. Feeling down, depressed, or hopeless: Not at all 3. Trouble falling or staying asleep, or sleeping too much: Several days 4. Feeling tired or having little energy: Several days 5. Poor appetite or overeating: Several days 6. Feeling bad about yourself -- or that you are a failure or have let yourself or your family down: Not at all 7. Trouble concentrating on things, such as reading the newspaper or watching television: Not at all 8. Moving or speaking so slowly that other people could have noticed. Or the opposite - being so fidgety or restless that you have been moving around a lot more than usual: Not at all 9. Thoughts that you would be better off , or of hurting yourself in some way: Not at all How difficult have these problems made it for you to do your work, take care of things at home, or get along with other people?: Not difficult at all Total Score: 3 SHERRY-Q SV Test - Statements CAD is a disease of the arteries in the heart: False Examples of risk factors for heart disease: True Angina is chest pain or discomfort: True The benefits of resistance training include: True Eating more meat and dairy products: False Anti-platelet medications such as aspirin are important: True The only effective way to manage stress: False An exercise warm-up slowly increases heart rate: True Prepared, processed foods usually have high sodium: True Depression is common after a heart attack: True The statin medications lower cholesterol: True To control blood pressure, lower the amount of sodium: True If someone gets chest discomfort during walking: False Transfats are partially hydrogenated vegetable oils: True Sleep apnea that is not treated increases the risk: True To control cholesterol, one should become a vegetarian: False Someone knows if he/she is exercising at the right level: True Diabetes cannot be prevented with exercise & health eating: False Stress is a large risk for heart attack: True A diet that can help lower blood pressure is rich in: True - Total Score Total Correct Responses: 19 Self-Efficacy Initial Assessment We would like to know how confident you are in doing certain activities. Please select your confidence level for:: Select your confidence level for the following using the scale 1-10 where 1 is not at all confident and 10 is totally confident. Your score is the average of all 6 responses. Fatigue: How confident are you that you can keep the fatigue caused by your disease from interfering with the things you want to do? Select Number: 8 Physical Discomfort or Pain: How confident are you that you can keep the physical discomfort or pain of your disease from interfering with the things you want to do? Select Number: 8 Emotional Distress: How confident are you that you can keep the emotional distress caused by your disease from interfering with the things you want to do? Select Number: 8 Other Symptoms or Health Problems: How confident are you that you can keep other symptoms or health problems from interfering with the things you want to do? Select Number: 9 Different Tasks and Activities: How confident are you that you can do the different tasks and activities needed to manage your health condition so as to reduce your need to see a doctor? Select Number: 9 Medication: How confident are you that you can do things other than just taking medication to reduce how much your illness affects your everyday life? Select Number: 8 Total Score:: 8 Nutrition Survey - Nutrition Survey Instructions Scoring Instructions: Scoring is as follows: Yes = 1 points. No = 0 point. Patient score that is >/=12 is considered to be at potential nutritional risk and could benefit from a referral to a registered dietitian. - Nutrition Survey Initial Have you lost >10 lbs over the past 2 months without trying?: No Are you following a special diet at home for diabetes, low fat, or low salt?: Yes Are you interested in meeting with a dietitian for help understanding your diet?: No Do you eat less than 3 meals a day?: No Do you eat fatty meats (osuna, sausage, ribs, etc), fried foods, desserts, large amounts of salad dressings, margarine, butter, or cheese most days?: Yes - some Do you have food allergies? [Enter types in comment field]: No Do you eat in restaurants more than 3 times a week?: Yes Do you season food with salt, seasoning salt, or garlic salt?: No Do you used canned, boxed, frozen meals, or soups, seasoning packets?: No Total Score:: 3
[2018-05-25 12:38] VITALS: BP 128/66
== END ==
PROVIDERS: Family Provider Family Medicine; PCP Family Medicine; Referring Provider Internal Medicine Cardiovascular Disease; Visit Provider Internal Medicine Cardiovascular Disease
DX: Z95.5 Presence of coronary angioplasty implant and graft (principal)

== ENCOUNTER 2018-06-09 06:30 | Outpatient (RCR) | payer BC, SELFPAY ==
[2018-05-11 01:08] VITALS: BP 124/66; BP 132/68
== END 2018-06-09 23:59 ==
LOC: CR 06:30
PROVIDERS: Family Provider Family Medicine; PCP Family Medicine; Referring Provider Internal Medicine Cardiovascular Disease; Visit Provider Internal Medicine Cardiovascular Disease
DX: I25.10 Atherosclerotic heart disease of native coronary artery without angina pectoris (principal); Z95.1 Presence of aortocoronary bypass graft
CPT/HCPCS: 93798

== ENCOUNTER 2018-06-27 09:59 | Outpatient (RCR) | payer BC, SELFPAY ==
[2018-05-25 11:08] VITALS: BMI 29.7
== END 2018-06-27 23:59 | disposition home or self-care (01) ==
LOC: NS 09:59
PROVIDERS: Family Provider Family Medicine; PCP Family Medicine; Visit Provider Internal Medicine Cardiovascular Disease
DX: E66.9 Obesity, unspecified (principal); I25.10 Atherosclerotic heart disease of native coronary artery without angina pectoris; Z71.3 Dietary counseling and surveillance
CPT/HCPCS: 97802

== ENCOUNTER 2018-07-10 06:30 | Outpatient (RCR) | payer BC, SELFPAY ==
[2018-05-25 11:08] VITALS: BMI 29.7
[2018-06-10 01:01] VITALS: BP 124/66; BP 132/68
[2018-07-07 10:29] VITALS: BP 106/58; BP 152/76
--- NOTE | 2018-07-07 10:30 | CR.ITP_ITS ---
Exercise - 30-day Assessment - Visit Date of Eval: 07/07/18 Session #:: 14 - Stages of Change Stages of Change:: Action - Exercise Prescription Mode:: Treadmill, Rower, Airdyne, NuStep Frequency (x/week): 3 Duration:: 30-45 min METs - Progression: 0.5-1 MET as tolerated: 6.5 increase from 4.5 Target Heart Rate:: 120-128 with max HR 133 - Hypertension Resting Blood Pressure:: 106/58 Peak Exercise Blood Pressure:: 152/76 Medication Changes:: No - Intervention Home Exercise/Activity Goal:: Moderate Exercise 30 min/day x 5 days/wk - Education Goals:: Warm-up, RPE ABDOULAYE Scale, S/S, Safe Exercise, Self-Monitoring - Exercise Program Goals Exercise Program Goals: Aerobic Activity >30 min Nutrition - 30-Day Assessment - Program Goals Nutrition Program Goals: LDL <70. Total Cholesterol <200. HDL >45. Triglycerides <150. HgbA1C <7%. BMI <25 - Visit Date of Eval: 07/07/18 - Stages of Change Stages of Change:: Action - Lipids Has the patient seen the dietitian?: Yes - Diabetes Diabetes:: No - Weight Management Weight:: 235 lb - Intervention Referral to dietitian:: No - currently seeing Weight Loss Referral to Diabetic Clinic:: No Will attend diet classes:: Yes - Education Attended class for:: Healthy eating Tobacco - Initial Assessment - Program Goals Tobacco Program Goals: Complete smoking cessation. Attend education classes. Improve Knowledge Test score - Learning Barriers Learning Barriers: Ready to Learn Tobacco - 30-Day Assessment - Program Goals Tobacco Program Goals: Complete smoking cessation. Attend education classes. Improve Knowledge Test score - Stage of Change Stages of Change:: Action - Family Support Do you have family support?: Yes - Tobacco Use Tobacco Use: Non-smoker Do you use smokeless tobacco?: No - Intervention Smoking Cessation Referral:: No Education Schedule Given:: Yes - Education Attended class for:: Coronary artery disease, Risk factors, Sexuality, Medical compliance, Cardiac A&P, Angina signs & symptoms Psychosocial - Initial Assess - Target Goals Target Goals: Assess presence or absence of depression. Using a valid screening tool, maximizes coping skills. Positive support system - Psychosocial Test Tool Used:: HANDS Depression Questionnaire - Assistive Devices Fall Risk Assessed:: Yes Psychosocial - 30-Day Assess - Target Goals Target Goals: Assess presence or absence of depression. Using a valid screening tool, maximizes coping skills. Positive support system - Stages of Change Stages of Change:: Action - Psychosocial Test Tool Used:: HANDS Depression Questionnaire - Intervention PS - Interventions: Yes Attend Stress Management Classes, Yes Uses Stress Management Skills, No Referral to Mental Health, No Referral to [facility] Case Management, No Referral to Physician - Education Attended classes for:: Coping techniques, Signs & symptoms of depression, Stress management, Relaxation techniques - Patient/Program Goal Preventative Medication(s):: Aspirin, Clopidogrel, Beta adriana, Statin/lipid - Assistive Devices Assistive Devices:: None Fall Risk Assessed:: Yes Patient Health Questionnaire 30-Day Re-eval Assessment 1. Little interest or pleasure in doing things: Not at all 2. Feeling down, depressed, or hopeless: Not at all 3. Trouble falling or staying asleep, or sleeping too much: Not at all 4. Feeling tired or having little energy: Not at all 5. Poor appetite or overeating: Not at all 6. Feeling bad about yourself -- or that you are a failure or have let yourself or your family down: Not at all 7. Trouble concentrating on things, such as reading the newspaper or watching television: Not at all 8. Moving or speaking so slowly that other people could have noticed. Or the opposite - being so fidgety or restless that you have been moving around a lot more than usual: Not at all 9. Thoughts that you would be better off , or of hurting yourself in some way: Not at all Total Score: 0 Self-Efficacy 30-Day Re-eval Assessment We would like to know how confident you are in doing certain activities. Please select your confidence level for:: Select your confidence level for the following using the scale 1-10 where 1 is not at all confident and 10 is totally confident. Your score is the average of all 6 responses. Fatigue: How confident are you that you can keep the fatigue caused by your disease from interfering with the things you want to do? Select Number: 10 Physical Discomfort or Pain: How confident are you that you can keep the physical discomfort or pain of your disease from interfering with the things you want to do? Select Number: 10 Emotional Distress: How confident are you that you can keep the emotional distress caused by your disease from interfering with the things you want to do? Select Number: 10 Other Symptoms or Health Problems: How confident are you that you can keep other symptoms or health problems from interfering with the things you want to do? Select Number: 10 Different Tasks and Activities: How confident are you that you can do the different tasks and activities needed to manage your health condition so as to reduce your need to see a doctor? Select Number: 10 Medication: How confident are you that you can do things other than just taking medication to reduce how much your illness affects your everyday life? Select Number: 10 Total Score:: 10
== END 2018-07-10 23:59 ==
LOC: CR 06:30
PROVIDERS: Family Provider Family Medicine; PCP Family Medicine; Referring Provider Internal Medicine Cardiovascular Disease; Visit Provider Internal Medicine Cardiovascular Disease
DX: I25.10 Atherosclerotic heart disease of native coronary artery without angina pectoris (principal); Z95.1 Presence of aortocoronary bypass graft
CPT/HCPCS: 93798

== ENCOUNTER 2018-11-12 03:04 | Observation (INO) | payer BC, SELFPAY ==
[2018-05-25 11:08] VITALS: BMI 29.7
[2018-11-12] VITALS (9 sets, daily range): BP systolic 109–172; BP diastolic 60–90; PULSE 52–63; RESP 11–18; TEMP 36.8–37.1; O2SAT 91–99; BMI 31.9; BMI 31.1; BMI 32.0
--- NOTE | 2018-11-12 03:07 | RAD_ITS ---
STUDY: X-RAY CHEST REASON FOR EXAM: Male, 58 years old. Chest pain TECHNIQUE: Single AP portable view of the chest. 2 images COMPARISON: 12/21/2017 FINDINGS: There are superimposed monitor leads. The lungs are clear and expanded. There is no demonstrated pleural abnormality. Sternal cerclage wires are present from a prior sternotomy a new finding since previous exam. Normal mediastinum and nitin. Normal visualized pulmonary arteries. Normal visualized aortic arch and descending thoracic aorta. Normal visualized thoracic spine. Normal visualized ribs, clavicles, and shoulders. There is no demonstrated abnormality of the visualized soft tissue structures of the upper abdomen. RAD/Chest 1 View (Portable) IMPRESSION: Status post sternotomy. No acute cardiopulmonary disease. No significant interval change. Electronically Signed: Jana Luna MD at 4:03 EDT , Service support ,
--- NOTE | 2018-11-12 03:07 | EKG12_ITS ---
Test Reason : CP Blood Pressure : / mmHG Vent. Rate : 059 BPM Atrial Rate : 059 BPM P-R Int : 146 ms QRS Dur : 084 ms QT Int : 424 ms P-R-T Axes : 037 -25 059 degrees QTc Int : 419 ms Sinus bradycardia Otherwise normal ECG Confirmed by DINESH OLMOS, ERVIN ([id number]), newspaper editor KALYAN EPPS ([id number]) on 11/14/2018 1:28:02 PM Referred By: Confirmed By:ERVIN MONTIEL MD
[2018-11-12] MEDS: Ondansetron 4 MG/2 ML Vial IV (03:17)
[2018-11-12] MEDS: Aspirin 81 MG TAB.CHEW 324 MG PO (03:17)
[2018-11-12] MEDS: Morphine 4 MG/ML Syringe IV ×2 (03:17→13:05)
--- NOTE | 2018-11-12 03:36 | ED.VISSUMM ---
- ER Visit Summary Date of Service: 11/12/18 Chief Complaint: Epigastric pain History of Present Illness: The patient is a 58 M presenting with epigastric pain. This started 1.5 hours prior to arrival. Pain woke him from sleep and is severe. He complains of nausea with no vomiting. He has had diaphoresis. Denies fever. states he ate fried pork chops from an air fryer last night. He has a history of CAD, hypercholesterolemia, previous CABG. He is not a smoker. Physical Examination: Vitals are stable. Patient is afebrile. Alert no acute distress. HEENT exam is unremarkable. Neck is supple. Lungs are clear and equal bilaterally. Heart is regular rate and rhythm. Abdomen is soft obese, epigastric and right upper quadrant tenderness. No rebound or guarding Extremities are unremarkable. Skin is warm and dry. No focal neurologic deficit. Remainder of exam is unremarkable. Emergency Department Course and Treatment: Patient was given aspirin, morphine, Zofran. EKG is sinus bradycardia 59 with no acute ischemic changes. CBC, chemistries unremarkable. Liver lipase are normal. Troponin is negative. Chest x-ray shows no acute process. On reevaluation, patient continues to complain of severe pain and was given Dilaudid with improvement of his pain. CT abdomen pelvis shows changes involving the gallbladder possibly due to acute cholecystitis, no calculi detected. Left enhancing adrenal mass, not conforming to classic adenoma appearance. Either comparison with previous examination to suggest just stability of findings or follow-up examination MRI recommended. Small hiatal hernia, rare colonic diverticula without inflammation, arteriosclerosis, rectus muscle diastases, as small fat-containing umbilical hernia, left inguinal hernia, mild degenerative changes and obesity. RUQ ultrasound shows acute acalculous cholecystitis is suspected. No biliary obstruction, choledocholithiasis, hydronephrosis or ascites. Discussed with Dr. Orantes. Patient will be admitted. He was given Zosyn IV. Disposition: Admission Impression: Acalculous cholecystitis This note was generated with Grabbed dictation software. It may contain incorrect words, spelling, and punctuation that were not noted in review of the chart prior to signing ED Disposition - Plan for ED Patient: Referrals: Tera Vázquez III, MD [Primary Care Provider] -
[2018-11-12] MEDS: HYDROmorphone 1 MG/ML Syringe IV (03:43)
[2018-11-12 04:02] LABS: Absolute Neutrophil Count 4.1 X10^3/uL (2.0-7.7); Basophil# 0.04 X10^3/uL; Basophil% 0.6 % (0-1); Eosinophil# 0.24 X10^3/uL; Eosinophils% 3.4 % (0-5); Hematocrit 49.6 % (40-54); Hemoglobin 17.5 g/dl (13.0-16.5); Lymphocyte % 25.5 % (19-41); Mean Corp Hgb Conc 35.3 g/gl (32-36); Mean Corpuscular Hgb 30.8 pg (27.0-32.0); Mean Corpuscular Volume 87.2 fL (80-94); Mean Platelet Vol. 9.9 fl (6.2-12.0); Monocyte# 0.87 X10^3/uL; Monocyte% 12.3 % (0-10); Neutrophil % 57.9 % (47-70); POSITIVE COUNT NO; POSITIVE DIFFERENTIAL NO; POSITIVE MORPHOLOGY NO; Platelet Count 205 K/mm3 (150-450); RBC Distribution Width CV 13.7 % (11.6-14.6); RBC Distribution Width SD 43.4 fl (35.1-43.9); Red Blood Count 5.69 M/mm3 (4.6-6.2); White Blood Count 7.1 K/mm3 (4.4-11.0)
[2018-11-12 04:16] LABS: Albumin, Serum 3.9 g/dL (3.2-5.0); BUN 17 mg/dL (7-18); BUN/Creat Ratio 14.4 RATIO (10-20); Calcium,Total 8.9 mg/dL (8.5-10.1); Creatinine, Serum 1.18 mg/dL (0.70-1.30); EST Glomerular Filtration Rate 67 mL/min (>60); Est Glom Filt Rate - Afr Amer 81 mL/min (>60); Estimated Creatinine Clearance 75.24 ml/min; Globulin 3.2 g/dL (2.2-4.2); Glucose 149 mg/dL (74-106); Lipase 259 U/L (73-393); Protein, Total 7.1 g/dL (6.4-8.2)
[2018-11-12 04:17] LABS: AST(SGOT) 20 U/L (15-37); Alanine Aminotransfer ALT/SGPT 26 U/L (16-61); Alkaline Phosphatase 68 U/L (45-117); Anion Gap 10 (5-15); Bilirubin, Direct 0.11 mg/dL (0.00-0.30); Chloride 104 mmol/L (98-107); Potassium 3.9 mmol/L (3.5-5.1); Sodium Level 141 mmol/L (136-145)
--- NOTE | 2018-11-12 04:17 | CT_ITS ---
STUDY: CT ABDOMEN AND PELVIS WITH CONTRAST REASON FOR EXAM: Male, 58 years old. Chest and upper abdominal pain RADIATION DOSAGE (If Supplied By Facility): CTDIvol = ( 18.23 ) mGy, DLP = ( 1357.26 ) mGycm TECHNIQUE: Transaxial 3.75 mm images were obtained from the dome of the diaphragm to the symphysis pubis without oral contrast. 100 IV Isovue 300 was administered. Sagittal and coronal images were reconstructed. Individualized dose optimization techniques were used for this CT. COMPARISON: None. FINDINGS: Nonspecific compression of dependent parenchyma. There is coronary artery calcification. Previous sternotomy. Normal liver. Distended indistinct gallbladder with mild pericholecystic stranding and nondilated extrahepatic biliary system. No cholelithiasis or choledocholithiasis detected. Normal spleen. Normal pancreas. There is a small, circumscribed, smooth, enhancing left adrenal mass measuring 1.7 x 1.6 cm image 38 series 2. Normal right adrenal gland. Normal right kidney. Normal left kidney. Mild bilateral perirenal stranding. There is a small hiatal hernia. Normal small intestine. There are rare sigmoid colonic diverticula consistent with diverticulosis. The appendix is visualized and appears normal. There is diffuse atherosclerotic calcification of the abdominal aorta and pelvic arteries, without a demonstrated aneurysm. Normal inferior vena cava. Normal retroperitoneum. Normal urinary bladder. There is a left-sided inguinal hernia containing adipose tissue. Rectus muscle diastases leading into a small fat-containing umbilical hernia. Obesity. There are degenerative changes of the visualized spine. CT/Abdomen/Pelvis W IV Cont ONLY IMPRESSION: Changes involving the gallbladder possibly due to acute cholecystitis, no calculi detected. Left enhancing adrenal mass, not conforming to classic adenoma appearance. Either comparison with previous examination to suggest just stability of findings or follow-up examination MRI recommended. Small hiatal hernia, rare colonic diverticula without inflammation, arteriosclerosis, rectus muscle diastases, as small fat-containing umbilical hernia, left inguinal hernia, mild degenerative changes and obesity felt to be known acute findings. Electronically Signed: Jana Luna MD at 4:49 EDT , Service support ,
--- NOTE | 2018-11-12 05:06 | US_ITS ---
STUDY: ABDOMINAL ULTRASOUND - RIGHT UPPER QUADRANT REASON FOR VISIT: Male, 58 years old. Right upper quadrant pain TECHNIQUE: Ultrasound evaluation of the right upper quadrant was performed with real-time and static niño-scale imaging. TECHNICAL QUALITY: Adequate. COMPARISON: CT abdomen pelvis 11/12/2018 FINDINGS: Liver: The liver measures 16.4 cm. There is normal echogenicity of the liver. The bile ducts are within normal limits. There is hepatic color flow. The direction of portal flow is hepatopetal. There is no demonstrated mass lesion. Gallbladder: 10 cm distended gallbladder. The gallbladder wall measures up to 5 mm. There is a negative sonographic Euceda's sign. There is pericholecystic fluid. There are no gallstones. Common Bile Duct (C.B.D.): The common bile duct measures 4 mm. Pancreas: There is nonvisualization of the pancreas. Right Kidney: Normal size of the right kidney. The right kidney measures 10 x 6 x 7 cm. Normal renal cortex. The right cortex measures 1.5 cm. There is no right hydronephrosis. US/Gallbladder IMPRESSION: Acute acalculous cholecystitis is suspected. No biliary obstruction, choledocholithiasis, hydronephrosis or ascites. Pancreas is not visualized but without acute findings on CT. Electronically Signed: Jana Luna MD at 6:49 EDT , Service support ,
[2018-11-12] MEDS: Lactated Ringers 1,000 ML 100 ML IV ×2 (09:04→18:53)
--- NOTE | 2018-11-12 09:52 | PCM.HP.BLA ---
History and Physical Date of Admission: 11/12/18 Chief Complaint: abdominal pain History of Present Illness: 58 y/o WM with coronary artery disease presents with abdominal pain to [facility] ED. Woke up with pain from sleep at around 1:00 this morning, was concerned that it was cardiac in etiology. Workup in ED revealed normal EKG and normal troponin. Patient given 4 ASA for concern for cardiac issue. Afebrile and normal WBC with normal differential CT scan - distended gallbladder with mild pericholecystic stranding and non dilated extrahepatic biliary system US - gallbladder wall 5 mm, no stones, pericholecystic fluid Denies chest pain, denies shortness of breath presently Past Medical History: coronary artery disease hypertension chronic insomnia Past Surgical History: Tonsillectomy appendectomy coronary artery bypass surgery coronary artery stent placement April 2018 Medications: ambien toprol xl prozac tylenol prn miralax prn senna prn aspirin plavix flonase nexium pravachol Allergies: Has no known drug allergies, but has side effects with vicodin Social history: TOB use denies lives with Review of Systems: General - denies fevers, has had intentional weight loss Cardiovascular denies chest pain Pulmonary denies shortness of breath, denies coughing up blood Gastrointestinal as per HPI, denies blood in stools Neurological denies seizures, denies history of stroke Genitourinary denies burning with urination, denies blood in urine Hematological has easy bruising on aspirin and plavix Skin denies open non healing wounds Musculoskeletal denies fractures Endocrine denies diabetes Psychological denies hallucinations, has depression disorder, has insomnia Physical examination: Vital signs Temp 98.3F RR 18 BP 124/99 HR 87 General WD/WN WM in no apparent distress, alert and oriented, not septic appearing HEENT Normocephalic. EOM intact with sclera clear and no icterus noted. Neck is supple with no jugular venous distention noted. Trachea is midline. Lungs clear to auscultation. normal breath sounds. No rales/rhonchi/wheezing noted. No labored breathing noted, such as retractions. No cough heard. Heart normal S1 and S2 auscultated. No rubs/clicks/murmurs noted. Normal size and location by auscultation. Abdomen soft and benign. Tender in right upper quadrant but no peritoneal signs noted. Normal bowel sounds. No abdominal bruits noted. Difficult to determine if any masses due to body habitus. Extremities no calf tenderness noted. No pitting edema noted. Genitourinary/Rectal deferred Skin normal skin integrity. Neurological non focal. Psychological normal affect, patient is calm and appropriate Labs - normal WBC, normal differential, normal LFTs Impression: right upper quadrant abdominal pain - intractable acalculous cholecystitis coronary artery disease, s/p stent placement on aspirin and plavix Discussion/Plan: I have discussed the above with the patient. Will obtain HIDA scan tomorrow to determine if gallbladder is completely obstructed, if so, may need to proceed to surgery. However, given that patient is at high risk for bleeding because of aspirin and plavix - would like to hold off on surgery. Clinically, patient appears better than what is represented on the radiological studies. He is at high risk for bleeding due to aspirin and plavix, and probably needs to stay on these medications, given that coronary artery stents were placed in April 2018. Will continue with IV antibiotics and pain control. Consider also placement of CT guided percutaneous cholecystotomy drain - will discuss with radiology tomorrow. Will obtain internal medicine consultation while he is in the hospital for medical management. Will continue IV antibiotics Pain control with IV meds and pain pills. Continue observation.
--- NOTE | 2018-11-12 10:09 | PCM.PN.HOSP ---
Subjective: Patient is a 58 y/o male with a PMH of CAD s/p CABG and 2 stents. He was admitted on 11/12/18 through the ED with a complaint of sharp epigastric and RUQ pain, which was rated 10/10, unrelenting, with no aggravating or relieving factors. He denied any fever or chills, but complained of nausea and vomiting. He had no chest pain, palpitations or dizziness. Review of systems was otherwise negative. He was admitted by general surgery for acute acalculous cholecystitis. Hospitalist service was consulted for medical management of his CAD. He had CABG in 2018, and 2 of the grafts failed, so he had stents placed in April 2018. This was done at [facility]. He is on dual antiplatelet therapy. He is currently on IV zosyn. Vitals/I&O's: Vital Signs Temp Pulse Resp BP Pulse Ox 98.3 F 55 L 17 122/60 H 96 11/12/18 03:05 11/12/18 08:08 11/12/18 08:08 11/12/18 08:08 11/12/18 08:08 Oxygen Delivery Method Room Air Weight: 236 lb 5.369 oz Body Mass Index (BMI) 31.1 General: Alert, Oriented x3, Cooperative, No apparent distress HEENT: Atraumatic, PERRLA, EOMI, Normocephalic Oral: Moist Mucosa Neck: Supple, No JVD, Negative Carotid Bruits Lungs: Clear to auscultation, Normal air movement, No rhonchi, No wheeze, No rales Cardiovascular: Regular rate, Regular Rhythm, Normal S1, Normal S2, No murmurs Abdomen: Bowel Sounds Present, Soft, Non Tender, Non-Distended, No Hepato-splenomegaly, - - Euceda's sign negative Extremities: No edema, Capillary Refill Less than 3 Seconds Skin: No rashes, No breakdown Musculoskeletal: No Tenderness to Palpation of Joints or Extremities Lymphatic: No Cervical, Supraclavicular, or Inguinal Adenopathy Neurological: Cranial nerves II-XII grossly intact, Neuro grossly intact, Motor Exam 5/5 strength throughout Psych/Mental Status: Normal Affect, Appropriate, Alert and oriented to time, place, person, mood and affect Laboratory Results 11/12/18 03:06: WBC 7.1, RBC 5.69, Hgb 17.5 H, Hct 49.6, MCV 87.2, MCH 30.8, MCHC 35.3, RDW 13.7, RDW Differential 43.4, Plt Count 205, MPV 9.9, Immature Gran % (Auto) 0.300, Neut % (Auto) 57.9, Lymph % (Auto) 25.5, [place] % (Auto) 12.3 H, Eos % (Auto) 3.4, Baso % (Auto) 0.6, Absolute Neuts (auto) 4.1, Absolute Lymphs (auto) 1.80, Total Counted Not Reportable 11/12/18 03:06: Sodium 141, Potassium 3.9, Chloride 104, Carbon Dioxide 27.0, Anion Gap 10, BUN 17, Creatinine 1.18, Estim Creat Clear Calc 75.24, Est GFR (MDRD) Af Amer 81, Est GFR (MDRD) Non-Af 67, BUN/Creatinine Ratio 14.4, Glucose 149 H, Calcium 8.9, Total Bilirubin 0.40, Direct Bilirubin 0.11, AST 20, ALT 26, Alkaline Phosphatase 68, Troponin I < 0.015, Total Protein 7.1, Albumin 3.9, Globulin 3.2, Lipase 259 Current Medications Acetaminophen (Tylenol) 650 mg PO Q6H PRN PRN Reason: PAIN [facility] Clopidogrel Bisulfate (Plavix) 75 mg PO DAILY [facility] Fluoxetine HCl (Prozac) 20 mg PO DAILY [facility] Fluticasone Propionate (Flonase Nasal [place]) 2 spray NASAL DAILY [facility] Lactated Ringer's () 1,000 mls @ 100 mls/hr IV .Q10H [facility] Last Admin: 11/12/18 09:04 Dose: 100 mls/hr Piperacillin Sod/Tazobactam (Sod 3.375 gm/ Sodium Chloride) 50 mls @ 12.5 mls/hr IV Q8 [facility] Ibuprofen (Motrin) 600 mg PO Q6 PRN PRN Reason: PAIN Metoprolol Succinate (Toprol Xl (Beta Honorio)) 100 mg PO DAILY [facility] Morphine Sulfate () 4 mg IV Q2H PRN PRN PRN Reason: MOD-SEVERE PAIN (4-10/10) Nitroglycerin (Nitrostat) 0.4 mg SUBLINGUAL Q5-15M PRN PRN Reason: chest pain Non-Formulary Medication (Zolpidem Tartrate [Ambien]) 10 mg PO QHS [place] Oxycodone HCl (Oxyir) 5 mg PO Q4H PRN PRN PRN Reason: SEVERE PAIN (-04/19) Pantoprazole Sodium (Protonix) 40 mg PO DAILY [facility] Pravastatin Sodium (Pravachol) 40 mg PO QHS [place] Sodium Chloride () 5 - 15 ml IV UD PRN PRN Reason: SALINE FLUSH Medical Necessity - Tobacco Use Smoking Status: Former smoker Assessment/Plan All Active Problems (Last Updated 11/09/18 @ 15:08 by Asha Redman) History of coronary artery stent placement (Resolved 04/19/18) H/O coronary artery bypass surgery (Resolved 12/26/17) 58 y/o male admitted with a complaint of abdominal pain. 1. Acute alcalculous cholecystitis has no elevated wbc CT abdomen: distended indistinct gallbladder with mild pericholecystic stranding and nondilated extrahepatic biliary system. No cholelithiasis or choledocholithiasis detected. small circumscribed, smooth, enhancing elft adrenal mass measuring 1.7x1.6cm, left sided inguinal hernia and small umbilical hernia gallbladder USG: acute acalculous cholecystitis, no biliary obstruction, choledocholithiasis, hydronephrosis or ascites currently on IV zosyn general surgery on board; advocate conservative management for now for HIDA scan tomorrow on IV lactated Ringers and IV morphine prn for pain as per orthopedics will dc ibuprofen due to history of cardiac disease 2. CAD s/p CABG and stents says 2 of the grafts failed ~ 12 weeks after CABG, necessitating stent placement. on aspirin and plavix, as well as statin currently stable EKG showed mild bradycardia with no acute ST changes if he does end up requiring surgery, will consider cardiology consult prior. Depression: on fluoxetine DVT prophylaxis: will start heparin Thank you for the courtesy of hte consult. We will continue to follow with you. Code Visit Inpatient E&M: 02589 Subs Hosp L2
[2018-11-12] MEDS: Fluticasone 0.05% 1 SPRAY NASAL.SRY 2 SPRAY NASAL (15:09)
[2018-11-12] MEDS: Heparin Injection (Vial) 5,000 UNIT/ML VIAL 5000 UNIT SC ×2 (15:09→21:37)
[2018-11-12] MEDS: Acetaminophen 325 MG Tablet 650 MG PO (18:58)
[2018-11-12] MEDS: oxyCODONE 5 MG Tablet PO (21:31)
[2018-11-12] MEDS: Metoprolol(XL)Succ 100 MG Tablet PO (21:32)
[2018-11-12] MEDS: Pravastatin 40 MG Tablet PO (21:33)
[2018-11-12] MEDS: Zolpidem Tartrate 5 MG Tablet 10 MG PO (21:36)
[2018-11-13 02:20] VITALS: BP 120/60; PULSE 61; RESP 16; TEMP 36.8; O2SAT 95
[2018-11-13] MEDS: Lactated Ringers 1,000 ML 100 ML IV ×2 (04:50→15:52)
[2018-11-13] MEDS: Heparin Injection (Vial) 5,000 UNIT/ML VIAL 5000 UNIT SC ×3 (04:51→22:02)
[2018-11-13 05:47] LABS: Absolute Lymphocyte Count 1.97 X10^3/ul (0.83-4.51); Basophil# 0.03 X10^3/uL; Basophil% 0.5 % (0-1); Eosinophil# 0.23 X10^3/uL; Eosinophils% 3.9 % (0-5); Hematocrit 44.6 % (40-54); Hemoglobin 15.5 g/dl (13.0-16.5); Lymphocyte # 1.97 X10^3/ul (4.0); Lymphocyte % 33.1 % (19-41); Mean Corp Hgb Conc 34.8 g/gl (32-36); Mean Corpuscular Hgb 30.8 pg (27.0-32.0); Mean Corpuscular Volume 88.7 fL (80-94); Mean Platelet Vol. 10.2 fl (6.2-12.0); Monocyte# 0.67 X10^3/uL; Monocyte% 11.3 % (0-10); Neutrophil # 3.04 X10^3/uL (2.7-7.7); Platelet Count 175 K/mm3 (150-450); RBC Distribution Width CV 13.9 % (11.6-14.6); RBC Distribution Width SD 44.9 fl (35.1-43.9); Red Blood Count 5.03 M/mm3 (4.6-6.2)
[2018-11-13 05:50] LABS: POSITIVE COUNT NO; POSITIVE DIFFERENTIAL NO; POSITIVE MORPHOLOGY NO
--- NOTE | 2018-11-13 05:55 | NM_ITS ---
CLINICAL: 58-year-old male with reported history of abdominal pain. RADIONUCLIDE HEPATOBILIARY SCINTIGRAPHY COMPARISON: CT of the abdomen-pelvis and abdominal ultrasound reports 11/12/2018 FINDINGS: Following the intravenous administration of 5.6 mCi of 99m Tc Mebrofenin, hepatobiliary images reveal: 1. Relatively prompt and homogeneous radiopharmaceutical concentration is noted by a normal sized liver. No parenchymal defects are identified. 2. Gallbladder activity is identified at 10 minutes post radiopharmaceutical administration. 3. Small intestinal tract is observed at 10 minutes following tracer injection. 4. Washout of the radiopharmaceutical by the hepatic parenchyma appears qualitatively normal. Cholecystokinin (0.02 ug/kg) was administered intravenously over a 30-minute period. The post CCK gallbladder ejection fraction calculated at 20 minutes following Cholecystokinin administration was noted to be < 5 % (normal greater than 35%). NM/Hepatobilliary Img w/Pharm Int IMPRESSION: 1. ABNORMAL 99m Tc Mebrofenin hepatobiliary imaging examination with Cholecystokinin. A. A gallbladder ejection fraction calculated to be less than 35% following the administration of Cholecystokinin is consistent with the presence of functional hepatobiliary disease (gallbladder and/or sphincter of Oddi dyskinesia) and/or organic hepatobiliary disease (chronic acalculous cholecystitis and/or cystic duct syndrome) in patients with intermediate to high pretest probabilities of hepatobiliary illness. (Brandy Montano et al, Journal of Nuclear Medicine 32:1695, 1990). Electronically Signed: Joel Gonzalez DO at 15:16 EDT Tel , Service support ,
[2018-11-13 06:10] LABS: ALB/GLOB Ratio 1.2 RATIO (0.9-2.4); AST(SGOT) 21 U/L (15-37); Alanine Aminotransfer ALT/SGPT 26 U/L (16-61); Albumin, Serum 3.1 g/dL (3.2-5.0); Alkaline Phosphatase 60 U/L (45-117); Anion Gap 6 (5-15); BUN 10 mg/dL (7-18); Calcium,Total 8.2 mg/dL (8.5-10.1); Chloride 107 mmol/L (98-107); Creatinine, Serum 1.11 mg/dL (0.70-1.30); EST Glomerular Filtration Rate 72 mL/min (>60); Est Glom Filt Rate - Afr Amer 87 mL/min (>60); Estimated Creatinine Clearance 79.98 ml/min; Globulin 2.6 g/dL (2.2-4.2); Glucose 95 mg/dL (74-106); Potassium 4.3 mmol/L (3.5-5.1); Protein, Total 5.7 g/dL (6.4-8.2); Sodium Level 143 mmol/L (136-145)
--- NOTE | 2018-11-13 07:40 | PN.SURG_ITS ---
Subjective: Patient feels slightly improved, rates pain as 3-4 out of 10 on a scale of 1-10 - Physical Exam General: Alert, Oriented x3 HEENT: Atraumatic Oral: Moist Mucosa Neck: Supple Lungs: Normal air movement Abdomen: Soft, Tender - right upper quadrant - no peritoneal signs Vital Signs Temp Pulse Resp BP Pulse Ox 98.2 F 61 16 120/60 95 11/13/18 02:20 11/13/18 02:20 11/13/18 02:20 11/13/18 02:20 11/13/18 02:20 Oxygen Delivery Method CPAP Weight: 107.2 kg Body Mass Index (BMI) 31.1 Intake and Output for Last 24 Hours 11/11/18 11/12/18 11/13/18 23:59 23:59 23:59 Intake Total 1850 / 1850 1443.2 / 1443.2 Balance 1850 / 1850 1443.2 / 1443.2 Laboratory Tests Past 24 Hrs 11/13/18 11/13/18 05:30 05:30 WBC 6.0 RBC 5.03 Hgb 15.5 Hct 44.6 MCV 88.7 MCH 30.8 MCHC 34.8 RDW 13.9 RDW Differential 44.9 H Plt Count 175 MPV 10.2 Immature Gran % (Auto) 0.200 Neut % (Auto) 51.0 Lymph % (Auto) 33.1 [place] % (Auto) 11.3 H Eos % (Auto) 3.9 Baso % (Auto) 0.5 Absolute Neuts (auto) 3.0 Absolute Lymphs (auto) 1.97 Total Counted Not Reportable Sodium 143 Potassium 4.3 Chloride 107 Carbon Dioxide 30.0 Anion Gap 6 BUN 10 Creatinine 1.11 Estim Creat Clear Calc 79.98 Est GFR (MDRD) Af Amer 87 Est GFR (MDRD) Non-Af 72 BUN/Creatinine Ratio 9.0 L Glucose 95 Calcium 8.2 L Total Bilirubin 0.80 AST 21 ALT 26 Alkaline Phosphatase 60 Total Protein 5.7 L Albumin 3.1 L Globulin 2.6 Albumin/Globulin Ratio 1.2 Medical Necessity - Tobacco Use Smoking Status: Former smoker Assessment/Plan All Active Problems (Last Updated 11/09/18 @ 15:08 by Asha Redman) History of coronary artery stent placement (Resolved 04/19/18) H/O coronary artery bypass surgery (Resolved 12/26/17) Impression: acute acalculous cholecystitis Plan: will have patient undergo HIDA scan if normal, can defer surgery until April if abnormal (that is - complete non vis of gallbladder), consider CT guided percutaneous drain
[2018-11-13 08:20] VITALS: BP 115/51; PULSE 59; RESP 18; TEMP 36.8; O2SAT 98
--- NOTE | 2018-11-13 08:24 | PCM.PN.HOSP ---
Subjective: Patient seen and examined. Abdominal pain is much better. He denies any fever chills, palpitations or dizziness, nausea vomiting. Review of systems otherwise negative. Labs and vitals reviewed. Vitals/I&O's: Vital Signs Temp Pulse Resp BP Pulse Ox 98.2 F 61 16 120/60 95 11/13/18 02:20 11/13/18 02:20 11/13/18 02:20 11/13/18 02:20 11/13/18 02:20 Oxygen Delivery Method CPAP Weight: 236 lb 5.369 oz Body Mass Index (BMI) 31.1 Intake and Output for Last 24 Hours 11/11/18 11/12/18 11/13/18 23:59 23:59 23:59 Intake Total 1849 / 1849 1443.2 / 1443.2 Balance 1849 1443.2 / 1443.2 General: Alert, Oriented x3, Cooperative, No apparent distress HEENT: Atraumatic, PERRLA, EOMI, Normocephalic Oral: Moist Mucosa Neck: Supple, No JVD, Negative Carotid Bruits Lungs: Clear to auscultation, Normal air movement, No rhonchi, No wheeze, No rales Cardiovascular: Regular rate, Regular Rhythm, Normal S1, Normal S2, No murmurs Abdomen: Bowel Sounds Present, Soft, Non Tender, Non-Distended, No Hepato-splenomegaly Extremities: No edema, Capillary Refill Less than 3 Seconds Skin: No rashes, No breakdown Musculoskeletal: No Tenderness to Palpation of Joints or Extremities Lymphatic: No Cervical, Supraclavicular, or Inguinal Adenopathy Neurological: Cranial nerves II-XII grossly intact, Neuro grossly intact, Motor Exam 5/5 strength throughout Psych/Mental Status: Normal Affect, Appropriate, Alert and oriented to time, place, person, mood and affect Laboratory Results 11/13/18 05:30: WBC 6.0, RBC 5.03, Hgb 15.5, Hct 44.6, MCV 88.7, MCH 30.8, MCHC 34.8, RDW 13.9, RDW Differential 44.9 H, Plt Count 175, MPV 10.2, Immature Gran % (Auto) 0.200, Neut % (Auto) 51.0, Lymph % (Auto) 33.1, [place] % (Auto) 11.3 H, Eos % (Auto) 3.9, Baso % (Auto) 0.5, Absolute Neuts (auto) 3.0, Absolute Lymphs (auto) 1.97, Total Counted Not Reportable 11/13/18 05:30: Sodium 143, Potassium 4.3, Chloride 107, Carbon Dioxide 30.0, Anion Gap 6, BUN 10, Creatinine 1.11, Estim Creat Clear Calc 79.98, Est GFR (MDRD) Af Amer 87, Est GFR (MDRD) Non-Af 72, BUN/Creatinine Ratio 9.0 L, Glucose 95, Calcium 8.2 L, Total Bilirubin 0.80, AST 21, ALT 26, Alkaline Phosphatase 60, Total Protein 5.7 L, Albumin 3.1 L, Globulin 2.6, Albumin/Globulin Ratio 1.2 Current Medications Acetaminophen (Tylenol) 650 mg PO Q6H PRN PRN Reason: PAIN Last Admin: 11/12/18 18:58 Dose: 650 mg Aspirin ([facility]cotrin) [facility] Clopidogrel Bisulfate (Plavix) 75 mg PO DAILY [facility] Fluoxetine HCl (Prozac) 20 mg PO DAILY [facility] Fluticasone Propionate (Flonase Nasal [place]) 2 spray NASAL DAILY [facility] Last Admin: 11/12/18 15:09 Dose: 2 spray Heparin Sodium (Porcine) (Heparin Na) 5,000 unit SC Q8 [facility] Last Admin: 11/13/18 04:51 Dose: 5,000 unit Lactated Ringer's () 1,000 mls @ 100 mls/hr IV .Q10H [facility] Last Admin: 11/13/18 04:50 Dose: 100 mls/hr Piperacillin Sod/Tazobactam (Sod 3.375 gm/ Sodium Chloride) 50 mls @ 12.5 mls/hr IV Q8 [facility] Last Admin: 11/13/18 04:50 Dose: 12.5 mls/hr Ibuprofen (Motrin) 600 mg PO Q6 PRN PRN Reason: PAIN Metoprolol Succinate (Toprol Xl (Beta Honorio)) 100 mg PO QHS [facility] Last Admin: 11/12/18 21:32 Dose: 100 mg Morphine Sulfate () 4 mg IV Q2H PRN PRN PRN Reason: MOD-SEVERE PAIN (4-10/10) Last Admin: 11/12/18 13:05 Dose: 4 mg Nitroglycerin (Nitrostat) 0.4 mg SUBLINGUAL Q5M PRN PRN Reason: chest pain Oxycodone HCl (Oxyir) 5 mg PO Q4H PRN PRN PRN Reason: SEVERE PAIN (6-10/10) Last Admin: 11/12/18 21:31 Dose: 5 mg Pantoprazole Sodium (Protonix) 40 mg PO DAILY [place] Pravastatin Sodium (Pravachol) 40 mg PO QHS [facility] Last Admin: 11/12/18 21:33 Dose: 40 mg Sodium Chloride () 5 - 15 ml IV UD PRN PRN Reason: SALINE FLUSH Zolpidem Tartrate (Ambien (Generic)) 10 mg PO QHS [facility] Last Admin: 11/12/18 21:36 Dose: 10 mg Medical Necessity - Tobacco Use Smoking Status: Former smoker Assessment/Plan All Active Problems (Last Updated 11/09/18 @ 15:08 by Asha Redman) History of coronary artery stent placement (Resolved 04/19/18) H/O coronary artery bypass surgery (Resolved 12/26/17) 58 y/o male admitted with a complaint of abdominal pain. 1. Acute alcalculous cholecystitis has no complaints this morning; abominal pain has improved significantly no leucocytosis for HIDA scan today; per general surgery, if HIDA scan is normal, gallbladder surgery can be deferred till April. However if there is non visualisation of gallbladder per HIDA scan, then to consider cholecystostomy drain on IV zosyn, and IV morphine prn, as well as IVF- Lactated Ringers 2. CAD s/p CABG and stents says 2 of the grafts failed ~ 12 weeks after CABG, necessitating stent placement. on aspirin and plavix, as well as statin currently stable EKG showed mild bradycardia with no acute ST changes if he does end up requiring surgery, will consider cardiology consult prior. Depression: on fluoxetine DVT prophylaxis: heparin Code Visit Inpatient E&M: 71142 Subs Hosp L2
--- NOTE | 2018-11-13 08:28 | PN_ITS ---
Subjective: Patient seen and examined. Abdominal pain is much better. He denies any fever chills, palpitations or dizziness, nausea vomiting. Review of systems otherwise negative. Labs and vitals reviewed. Vitals/I&O's: Vital Signs Temp Pulse Resp BP Pulse Ox 98.2 F 61 16 120/60 95 11/13/18 02:20 11/13/18 02:20 11/13/18 02:20 11/13/18 02:20 11/13/18 02:20 Oxygen Delivery Method CPAP Weight: 236 lb 5.369 oz Body Mass Index (BMI) 31.1 Intake and Output for Last 24 Hours 11/11/18 11/12/18 11/13/18 23:59 23:59 23:59 Intake Total 1849 / 1849 1443.2 / 1443.2 Balance 1849 1443.2 / 1443.2 General: Alert, Oriented x3, Cooperative, No apparent distress HEENT: Atraumatic, PERRLA, EOMI, Normocephalic Oral: Moist Mucosa Neck: Supple, No JVD, Negative Carotid Bruits Lungs: Clear to auscultation, Normal air movement, No rhonchi, No wheeze, No rales Cardiovascular: Regular rate, Regular Rhythm, Normal S1, Normal S2, No murmurs Abdomen: Bowel Sounds Present, Soft, Non Tender, Non-Distended, No Hepato- splenomegaly Extremities: No edema, Capillary Refill Less than 3 Seconds Skin: No rashes, No breakdown Musculoskeletal: No Tenderness to Palpation of Joints or Extremities Lymphatic: No Cervical, Supraclavicular, or Inguinal Adenopathy Neurological: Cranial nerves II-XII grossly intact, Neuro grossly intact, Motor Exam 5/5 strength throughout Psych/Mental Status: Normal Affect, Appropriate, Alert and oriented to time, place, person, mood and affect Laboratory Results 11/13/18 05:30: WBC 6.0, RBC 5.03, Hgb 15.5, Hct 44.6, MCV 88.7, MCH 30.8, MCHC 34.8, RDW 13.9, RDW Differential 44.9 H, Plt Count 175, MPV 10.2, Immature Gran % (Auto) 0.200, Neut % (Auto) 51.0, Lymph % (Auto) 33.1, [place] % (Auto) 11.3 H, Eos % (Auto) 3.9, Baso % (Auto) 0.5, Absolute Neuts (auto) 3.0, Absolute Lymphs (auto) 1.97, Total Counted Not Reportable 11/13/18 05:30: Sodium 143, Potassium 4.3, Chloride 107, Carbon Dioxide 30.0, Anion Gap 6, BUN 10, Creatinine 1.11, Estim Creat Clear Calc 79.98, Est GFR (MDRD) Af Amer 87, Est GFR (MDRD) Non-Af 72, BUN/Creatinine Ratio 9.0 L, Glucose 95, Calcium 8.2 L, Total Bilirubin 0.80, AST 21, ALT 26, Alkaline Phosphatase 60, Total Protein 5.7 L, Albumin 3.1 L, Globulin 2.6, Albumin/Globulin Ratio 1.2 Current Medications Acetaminophen (Tylenol) 650 mg PO Q6H PRN PRN Reason: PAIN Last Admin: 11/12/18 18:58 Dose: 650 mg [facility] ([facility]) [facility] Clopidogrel Bisulfate (Plavix) 75 mg PO DAILY [facility] Fluoxetine HCl (Prozac) 20 mg PO DAILY [facility] Fluticasone Propionate (Flonase Nasal [place]) 2 spray NASAL DAILY [facility] Last Admin: 11/12/18 15:09 Dose: 2 spray Heparin Sodium (Porcine) (Heparin Na) 5,000 unit SC Q8 [facility] Last Admin: 11/13/18 04:51 Dose: 5,000 unit Lactated Ringer's () 1,000 mls @ 100 mls/hr IV .Q10H [facility] Last Admin: 11/13/18 04:50 Dose: 100 mls/hr Piperacillin Sod/Tazobactam (Sod 3.375 gm/ Sodium Chloride) 50 mls @ 12.5 mls/hr IV Q8 [facility] Last Admin: 11/13/18 04:50 Dose: 12.5 mls/hr Ibuprofen (Motrin) 600 mg PO Q6 PRN PRN Reason: PAIN Metoprolol Succinate (Toprol Xl (Beta Honorio)) 100 mg PO QHS [facility] Last Admin: 11/12/18 21:32 Dose: 100 mg Morphine Sulfate () 4 mg IV Q2H PRN PRN PRN Reason: MOD-SEVERE PAIN (4-10/10) Last Admin: 11/12/18 13:05 Dose: 4 mg Nitroglycerin (Nitrostat) 0.4 mg SUBLINGUAL Q5M PRN PRN Reason: chest pain Oxycodone HCl (Oxyir) 5 mg PO Q4H PRN PRN PRN Reason: SEVERE PAIN (6-10/10) Last Admin: 11/12/18 21:31 Dose: 5 mg Pantoprazole Sodium (Protonix) 40 mg PO DAILY [facility] Pravastatin Sodium (Pravachol) 40 mg PO QHS [facility] Last Admin: 11/12/18 21:33 Dose: 40 mg Sodium Chloride () 5 - 15 ml IV UD PRN PRN Reason: SALINE FLUSH Zolpidem Tartrate (Ambien (Generic)) 10 mg PO QHS [facility] Last Admin: 11/12/18 21:36 Dose: 10 mg Medical Necessity - Tobacco Use Smoking Status: Former smoker Assessment/Plan All Active Problems (Last Updated 11/09/18 @ 15:08 by Asha Redman) History of coronary artery stent placement (Resolved 04/19/18) H/O coronary artery bypass surgery (Resolved 12/26/17) 58 y/o male admitted with a complaint of abdominal pain. 1. Acute alcalculous cholecystitis * has no complaints this morning; abominal pain has improved significantly * no leucocytosis * for HIDA scan today; per general surgery, if HIDA scan is normal, gallbladder surgery can be deferred till April. However if there is non visualisation of gallbladder per HIDA scan, then to consider cholecystostomy drain * on IV zosyn, and IV morphine prn, as well as IVF- Lactated Ringers * * 2. CAD s/p CABG and stents * says 2 of the grafts failed ~ 12 weeks after CABG, necessitating stent placement. * on aspirin and plavix, as well as statin * currently stable * EKG showed mild bradycardia with no acute ST changes * if he does end up requiring surgery, will consider cardiology consult prior. * Depression: on fluoxetine DVT prophylaxis: heparin Code Visit Inpatient E&M: 84627 Subs Hosp L2
[2018-11-13 14:20] VITALS: BP 136/75; PULSE 60; RESP 18; TEMP 36.6; O2SAT 100
[2018-11-13] MEDS: oxyCODONE 5 MG Tablet PO (15:39)
[2018-11-13] MEDS: Fluticasone 0.05% 1 SPRAY NASAL.SRY 2 SPRAY NASAL (15:41)
[2018-11-13] MEDS: Aspirin E.C. 81 MG Tablet 162 MG PO (15:41)
[2018-11-13] MEDS: FLUoxetine 20 MG Capsule PO (15:42)
[2018-11-13] MEDS: Clopidogrel Bisulfate 75 MG Tablet PO (15:42)
[2018-11-13] MEDS: Pantoprazole Sodium 40 MG Tablet PO (15:42)
[2018-11-13 19:52] VITALS: BP 109/58; PULSE 65; RESP 16; TEMP 36.8; O2SAT 98
[2018-11-13 22:00] VITALS: BP 125/74; PULSE 55; RESP 16; TEMP 36.9; O2SAT 99
[2018-11-13 22:01] VITALS: PULSE 55
[2018-11-13] MEDS: Pravastatin 40 MG Tablet PO (22:01)
[2018-11-13] MEDS: Metoprolol(XL)Succ 50 MG Tablet PO (22:01)
[2018-11-13] MEDS: Zolpidem Tartrate 5 MG Tablet 10 MG PO (22:01)
[2018-11-13] MEDS: Acetaminophen 325 MG Tablet 650 MG PO (22:02)
[2018-11-14] MEDS: Lactated Ringers 1,000 ML 100 ML IV (01:41)
[2018-11-14 05:32] VITALS: BP 123/76; PULSE 64; RESP 16; TEMP 36.8; O2SAT 100
[2018-11-14] MEDS: Heparin Injection (Vial) 5,000 UNIT/ML VIAL 5000 UNIT SC (05:34)
[2018-11-14 06:31] LABS: Absolute Lymphocyte Count 1.59 X10^3/ul (0.83-4.51); Absolute Neutrophil Count 2.5 X10^3/uL (2.0-7.7); Basophil# 0.02 X10^3/uL; Basophil% 0.4 % (0-1); Eosinophil# 0.23 X10^3/uL; Eosinophils% 4.6 % (0-5); Hemoglobin 16.3 g/dl (13.0-16.5); Lymphocyte # 1.59 X10^3/ul (4.0); Lymphocyte % 32.1 % (19-41); Mean Corp Hgb Conc 34.7 g/gl (32-36); Mean Corpuscular Hgb 29.9 pg (27.0-32.0); Mean Corpuscular Volume 86.2 fL (80-94); Mean Platelet Vol. 10.5 fl (6.2-12.0); Monocyte# 0.57 X10^3/uL; Monocyte% 11.5 % (0-10); Neutrophil # 2.52 X10^3/uL (2.7-7.7); Platelet Count 178 K/mm3 (150-450); RBC Distribution Width CV 13.7 % (11.6-14.6); RBC Distribution Width SD 43.6 fl (35.1-43.9); Red Blood Count 5.45 M/mm3 (4.6-6.2)
[2018-11-14 06:34] LABS: POSITIVE COUNT NO; POSITIVE DIFFERENTIAL NO; POSITIVE MORPHOLOGY NO
[2018-11-14 06:58] LABS: ALB/GLOB Ratio 1.1 RATIO (0.9-2.4); AST(SGOT) 26 U/L (15-37); Alanine Aminotransfer ALT/SGPT 24 U/L (16-61); Albumin, Serum 3.2 g/dL (3.2-5.0); Alkaline Phosphatase 60 U/L (45-117); Anion Gap 5 (5-15); BUN 13 mg/dL (7-18); BUN/Creat Ratio 11.9 RATIO (10-20); Calcium,Total 8.5 mg/dL (8.5-10.1); Chloride 107 mmol/L (98-107); Creatinine, Serum 1.09 mg/dL (0.70-1.30); EST Glomerular Filtration Rate 73 mL/min (>60); Est Glom Filt Rate - Afr Amer 89 mL/min (>60); Estimated Creatinine Clearance 81.45 ml/min; Globulin 2.9 g/dL (2.2-4.2); Glucose 91 mg/dL (74-106); Potassium 4.3 mmol/L (3.5-5.1); Protein, Total 6.1 g/dL (6.4-8.2); Sodium Level 140 mmol/L (136-145)
--- NOTE | 2018-11-14 07:02 | PN.SURG_ITS ---
Subjective: Patient feels improved, feels hungry, passing flatus - Physical Exam General: Alert, Oriented x3 Oral: Moist Mucosa Neck: Supple Lungs: Normal air movement Cardiovascular: Regular rate Abdomen: Bowel Sounds Present - much less tender, Soft Vital Signs Temp Pulse Resp BP Pulse Ox 98.2 F 64 16 123/76 H 100 11/14/18 05:32 11/14/18 05:32 11/14/18 05:32 11/14/18 05:32 11/14/18 05:32 Oxygen Delivery Method Room Air Weight: 107.2 kg Body Mass Index (BMI) 31.1 Intake and Output for Last 24 Hours 11/12/18 11/13/18 11/14/18 23:59 23:59 23:59 Intake Total 1850 / 1850 2676.2 / 2676.2 935 / 935 Output Total 2800 / 2800 700 / 700 Balance 1850 / 1850 -123.8 / -123.8 235 / 235 Laboratory Tests Past 24 Hrs 11/14/18 11/14/18 05:39 05:39 WBC 5.0 RBC 5.45 Hgb 16.3 Hct 47.0 MCV 86.2 MCH 29.9 MCHC 34.7 RDW 13.7 RDW Differential 43.6 Plt Count 178 MPV 10.5 Immature Gran % (Auto) 0.400 Neut % (Auto) 51.0 Lymph % (Auto) 32.1 [place] % (Auto) 11.5 H Eos % (Auto) 4.6 Baso % (Auto) 0.4 Absolute Neuts (auto) 2.5 Absolute Lymphs (auto) 1.59 Total Counted Not Reportable Sodium 140 Potassium 4.3 Chloride 107 Carbon Dioxide 28.0 Anion Gap 5 BUN 13 Creatinine 1.09 Estim Creat Clear Calc 81.45 Est GFR (MDRD) Af Amer 89 Est GFR (MDRD) Non-Af 73 BUN/Creatinine Ratio 11.9 Glucose 91 Calcium 8.5 Total Bilirubin 0.90 AST 26 ALT 24 Alkaline Phosphatase 60 Total Protein 6.1 L Albumin 3.2 Globulin 2.9 Albumin/Globulin Ratio 1.1 Medical Necessity - Tobacco Use Smoking Status: Former smoker Assessment/Plan All Active Problems (Last Reviewed 11/16/18 @ 08:15 by Casie Mabry) Acalculous cholecystitis (Acute) Depression (Acute) Hemorrhoids (Acute) Abdominal pain (Acute) Pneumothorax (Resolved) History of appendectomy (Resolved) History of coronary artery stent placement (Resolved 04/19/18) H/O coronary artery bypass surgery (Resolved 12/26/17) Impression: acute acalculous cholecystitis Plan: d/c to home
--- NOTE | 2018-11-14 07:03 | PCM.DC.GB ---
Discharge Diet: Low fat/ Low Cholesterol Discharge Activity: Return to Normal Activity Allergies/Adverse Reactions: Allergies No Known Allergies Allergy (Unverified 11/12/18 03:08) Medications to take at Discharge esomeprazole magnesium 40 mg capsule,delayed release 40 mg PO QDAY 12/20/17 fluticasone propionate 50 mcg/actuation nasal spray,suspension 2 spray INTRANASAL QDAY 12/20/17 melatonin 10 mg capsule 10 mg PO HS PRN 12/21/17 acetaminophen 325 mg tablet 650 mg PO Q6H PRN tab 01/05/18 metoprolol succinate ER 100 mg tablet,extended release 24 hr 100 mg PO DAILY #90 tab 04/10/18 aspirin 81 mg tablet,delayed release 162 mg PO QDAY tab 04/17/18 clopidogrel 75 mg tablet 75 mg PO DAILY 04/17/18 nitroglycerin 0.4 mg sublingual tablet 0.4 mg SUBLINGUAL Q5-15M PRN #25 tab 04/17/18 Zolpidem Tartrate [Ambien] 10 mg PO QHS 04/19/18 pravastatin 40 mg tablet 40 mg PO QHS #90 tab 09/18/18 Fluoxetine [Prozac] 20 mg PO DAILY 11/12/18 Primary Care Physician: Tera Vázquez III, MD [Primary Care Provider] - Test Results: Test results from this visit will be discussed in further detail at your follow-up appointment, if applicable. When: referral made to [facility] general surgery
--- NOTE | 2018-11-14 07:31 | DCINST_ITS ---
Discharge Diet: Low fat/ Low Cholesterol Discharge Activity: Return to Normal Activity Allergies/Adverse Reactions: Allergies No Known Allergies Allergy (Unverified 11/12/18 03:08) Medications to take at Discharge esomeprazole magnesium 40 mg capsule,delayed release 40 mg PO QDAY 12/20/17 fluticasone propionate 50 mcg/actuation nasal spray,suspension 2 spray INTRANASAL QDAY 12/20/17 melatonin 10 mg capsule 10 mg PO HS PRN 12/21/17 acetaminophen 325 mg tablet 650 mg PO Q6H PRN tab 01/05/18 metoprolol succinate ER 100 mg tablet,extended release 24 hr 100 mg PO DAILY #90 tab 04/10/18 aspirin 81 mg tablet,delayed release 162 mg PO QDAY tab 04/17/18 clopidogrel 75 mg tablet 75 mg PO DAILY 04/17/18 nitroglycerin 0.4 mg sublingual tablet 0.4 mg SUBLINGUAL Q5-15M PRN #25 tab 04/17/18 Zolpidem Tartrate [Ambien] 10 mg PO QHS 04/19/18 pravastatin 40 mg tablet 40 mg PO QHS #90 tab 09/18/18 Fluoxetine [Prozac] 20 mg PO DAILY 11/12/18 Primary Care Physician: Tera Vázquez III, MD [Primary Care Provider] - Test Results: Test results from this visit will be discussed in further detail at your follow- up appointment, if applicable. When: referral made to [facility] general surgery
[2018-11-14] MEDS: Aspirin E.C. 81 MG Tablet 162 MG PO (08:02)
[2018-11-14 08:03] VITALS: BP 144/73; PULSE 68; RESP 16; TEMP 37.1; O2SAT 97
--- NOTE | 2018-11-14 08:48 | PCM.PN.HOSP ---
Subjective: Patient seen and examined. He had no complaints and feels well. Abdominal pain has resolved. He was eating breakfast and was comfortable. Review of systems otherwise negative. Labs and vitals reviewed. Vitals/I&O's: Vital Signs Temp Pulse Resp BP Pulse Ox 98.7 F 68 16 144/73 H 97 11/14/18 08:03 11/14/18 08:03 11/14/18 08:03 11/14/18 08:03 11/14/18 08:03 Oxygen Delivery Method Room Air Weight: 236 lb 5.369 oz Body Mass Index (BMI) 31.1 Intake and Output for Last 24 Hours 11/12/18 11/13/18 11/14/18 23:59 23:59 23:59 Intake Total 1850 / 1850 2676.2 / 2676.2 935 / 935 Output Total 2800 / 2800 700 / 700 Balance 1850 / 1850 -123.8 / -123.8 235 / 235 General: Alert, Oriented x3, Cooperative, No apparent distress HEENT: Atraumatic, PERRLA, EOMI, Normocephalic Oral: Moist Mucosa Neck: Supple, No JVD, Negative Carotid Bruits Lungs: Clear to auscultation, Normal air movement, No rhonchi, No wheeze, No rales Cardiovascular: Regular rate, Regular Rhythm, Normal S1, Normal S2, No murmurs Abdomen: Bowel Sounds Present, Soft, Non Tender, Non-Distended, No Hepato-splenomegaly Extremities: No edema, Capillary Refill Less than 3 Seconds Skin: No rashes, No breakdown Musculoskeletal: No Tenderness to Palpation of Joints or Extremities Lymphatic: No Cervical, Supraclavicular, or Inguinal Adenopathy Neurological: Cranial nerves II-XII grossly intact, Neuro grossly intact, Motor Exam 5/5 strength throughout Psych/Mental Status: Normal Affect, Appropriate, Alert and oriented to time, place, person, mood and affect Laboratory Results 11/14/18 05:39: WBC 5.0, RBC 5.45, Hgb 16.3, Hct 47.0, MCV 86.2, MCH 29.9, MCHC 34.7, RDW 13.7, RDW Differential 43.6, Plt Count 178, MPV 10.5, Immature Gran % (Auto) 0.400, Neut % (Auto) 51.0, Lymph % (Auto) 32.1, [place] % (Auto) 11.5 H, Eos % (Auto) 4.6, Baso % (Auto) 0.4, Absolute Neuts (auto) 2.5, Absolute Lymphs (auto) 1.59, Total Counted Not Reportable 11/14/18 05:39: Sodium 140, Potassium 4.3, Chloride 107, Carbon Dioxide 28.0, Anion Gap 5, BUN 13, Creatinine 1.09, Estim Creat Clear Calc 81.45, Est GFR (MDRD) Af Amer 89, Est GFR (MDRD) Non-Af 73, BUN/Creatinine Ratio 11.9, Glucose 91, Calcium 8.5, Total Bilirubin 0.90, AST 26, ALT 24, Alkaline Phosphatase 60, Total Protein 6.1 L, Albumin 3.2, Globulin 2.9, Albumin/Globulin Ratio 1.1 Medical Necessity - Tobacco Use Smoking Status: Former smoker Assessment/Plan All Active Problems (Last Updated 11/09/18 @ 15:08 by Asha Redman) History of coronary artery stent placement (Resolved 04/19/18) H/O coronary artery bypass surgery (Resolved 12/26/17) 58 y/o male admitted with a complaint of abdominal pain. 1. Acute alcalculous cholecystitis has no complaints this morning; abominal pain has resolved. no leucocytosis HIDA scan was abnormal. for dc home today per general surgery; will need outpatient cholecystectomy and will follow up with general surgery for this. If he remains stable, it will be done after he completes one year of dual antiplatelet therapy, which will be April 2019. If cholecystitis recurs, surgery will have to be earlier. 2. CAD s/p CABG and stents on aspirin and plavix, as well as statin currently stable 3. Asymptomatic bradycardia patient's heart rate has been in the low 50s. 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 will maintain metoprolol at 100mg xl 4. Depression: on fluoxetine DVT prophylaxis: heparin Disposition: discharged home today Code Visit Inpatient E&M: 92914 Subs Hosp L2
--- NOTE | 2018-11-14 08:57 | PN_ITS ---
Subjective: Patient seen and examined. He had no complaints and feels well. Abdominal pain has resolved. He was eating breakfast and was comfortable. Review of systems otherwise negative. Labs and vitals reviewed. Vitals/I&O's: Vital Signs Temp Pulse Resp BP Pulse Ox 98.7 F 68 16 144/73 H 97 11/14/18 08:03 11/14/18 08:03 11/14/18 08:03 11/14/18 08:03 11/14/18 08:03 Oxygen Delivery Method Room Air Weight: 236 lb 5.369 oz Body Mass Index (BMI) 31.1 Intake and Output for Last 24 Hours 11/12/18 11/13/18 11/14/18 23:59 23:59 23:59 Intake Total 1850 / 1850 2676.2 / 2676.2 935 / 935 Output Total 2800 / 2800 700 / 700 Balance 1850 / 1850 -123.8 / -123.8 235 / 235 General: Alert, Oriented x3, Cooperative, No apparent distress HEENT: Atraumatic, PERRLA, EOMI, Normocephalic Oral: Moist Mucosa Neck: Supple, No JVD, Negative Carotid Bruits Lungs: Clear to auscultation, Normal air movement, No rhonchi, No wheeze, No rales Cardiovascular: Regular rate, Regular Rhythm, Normal S1, Normal S2, No murmurs Abdomen: Bowel Sounds Present, Soft, Non Tender, Non-Distended, No Hepato- splenomegaly Extremities: No edema, Capillary Refill Less than 3 Seconds Skin: No rashes, No breakdown Musculoskeletal: No Tenderness to Palpation of Joints or Extremities Lymphatic: No Cervical, Supraclavicular, or Inguinal Adenopathy Neurological: Cranial nerves II-XII grossly intact, Neuro grossly intact, Motor Exam 5/5 strength throughout Psych/Mental Status: Normal Affect, Appropriate, Alert and oriented to time, place, person, mood and affect Laboratory Results 11/14/18 05:39: WBC 5.0, RBC 5.45, Hgb 16.3, Hct 47.0, MCV 86.2, MCH 29.9, MCHC 34.7, RDW 13.7, RDW Differential 43.6, Plt Count 178, MPV 10.5, Immature Gran % (Auto) 0.400, Neut % (Auto) 51.0, Lymph % (Auto) 32.1, [place] % (Auto) 11.5 H, Eos % (Auto) 4.6, Baso % (Auto) 0.4, Absolute Neuts (auto) 2.5, Absolute Lymphs (auto) 1.59, Total Counted Not Reportable 11/14/18 05:39: Sodium 140, Potassium 4.3, Chloride 107, Carbon Dioxide 28.0, Anion Gap 5, BUN 13, Creatinine 1.09, Estim Creat Clear Calc 81.45, Est GFR (MDRD) Af Amer 89, Est GFR (MDRD) Non-Af 73, BUN/Creatinine Ratio 11.9, Glucose 91, Calcium 8.5, Total Bilirubin 0.90, AST 26, ALT 24, Alkaline Phosphatase 60, Total Protein 6.1 L, Albumin 3.2, Globulin 2.9, Albumin/Globulin Ratio 1.1 Medical Necessity - Tobacco Use Smoking Status: Former smoker Assessment/Plan All Active Problems (Last Updated 11/09/18 @ 15:08 by Asha Redman) History of coronary artery stent placement (Resolved 04/19/18) H/O coronary artery bypass surgery (Resolved 12/26/17) 58 y/o male admitted with a complaint of abdominal pain. 1. Acute alcalculous cholecystitis * has no complaints this morning; abominal pain has resolved. * no leucocytosis * HIDA scan was abnormal. * for dc home today per general surgery; will need outpatient cholecystectomy and will follow up with general surgery for this. If he remains stable, it will be done after he completes one year of dual antiplatelet therapy, which will be April 2019. If cholecystitis recurs, surgery will have to be earlier. * * 2. CAD s/p CABG and stents * on aspirin and plavix, as well as statin * currently stable * 3. Asymptomatic bradycardia * patient's heart rate has been in the low 50s. 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 * will maintain metoprolol at 100mg xl * 4. Depression: on fluoxetine DVT prophylaxis: heparin Disposition: discharged home today Code Visit Inpatient E&M: 93290 Subs Hosp L2
--- NOTE | 2018-11-16 19:16 | PCM.DC.BLA ---
Discharge Summary Date of Admission: 11/12/18 Date of Discharge: 11/14/18 Summary: Patient admitted to acalculous cholecystitis. Is on aspirin and plavix and had coronary artery stents placed. Placed on IV antibiotics and pain control medications abdominal pain improved. Discharged to home, to follow up with cardiology and consider cholecystectomy in near future. - Physical Exam Vital Signs Temp Pulse Resp BP Pulse Ox 98.7 F 68 16 144/73 H 97 11/14/18 08:03 11/14/18 08:03 11/14/18 08:03 11/14/18 08:03 11/14/18 08:03 Oxygen Delivery Method Room Air Weight: 107.2 kg Body Mass Index (BMI) 31.1 Intake and Output for Last 24 Hours 11/14/18 11/15/18 11/16/18 23:59 23:59 23:59 Intake Total 935 / 935 Output Total 700 / 700 Balance 235 / 235
== END 2018-11-14 08:16 | disposition home or self-care (01) ==
LOC: ED 03:30 → MS3 08:07
PROVIDERS: Student in an Organized Health Care Education/Training Program; Admitting Provider Surgery; Emergency Provider Emergency Medicine; Family Provider Family Medicine; PCP Family Medicine; Visit Provider Surgery
DX: K81.0 Acute cholecystitis (principal); Z95.1 Presence of aortocoronary bypass graft; E78.00 Pure hypercholesterolemia, unspecified; I25.10 Atherosclerotic heart disease of native coronary artery without angina pectoris; I10 Essential (primary) hypertension; Z79.899 Other long term (current) drug therapy; Z79.51 Long term (current) use of inhaled steroids; Z79.82 Long term (current) use of aspirin; Z87.891 Personal history of nicotine dependence; F32.9 Major depressive disorder, single episode, unspecified; G47.33 Obstructive sleep apnea (adult) (pediatric)
CPT/HCPCS: 36415; 71045; 74177; 76705; 78227; 80048; 80053; 80076; 83690; 84484; 85025; 93005; 96361; 96365; 96366; 96372; 96375; 99218; 99284; A9537; J7050; J7120; Q9967; A4216; G0378; J2405; J2805

== ENCOUNTER 2018-11-22 08:18 | Day surgery (SDC) | payer BC, SELFPAY ==
[2018-11-16 08:34] VITALS: BMI 31.5
--- NOTE | 2018-11-16 09:37 | HP_ITS ---
Intake Vital Signs 11/16/18 Body Mass Index (BMI) 31.5 11/16/18 Height 6 ft 1 in 11/16/18 Weight: 235 lb 11/16/18 Body Mass Index (BMI) 30.9 11/16/18 Blood Pressure 126/79 H 11/16/18 Blood Pressure Location Rt brachial 11/16/18 Blood Pressure Position Sitting 11/16/18 Respiratory Rate 14 11/16/18 Pulse Rate 58 L 11/16/18 Pulse Source Monitor 11/16/18 Temperature 98.3 F 11/16/18 Temperature Source Oral 11/16/18 Pulse Ox 98 11/16/18 Oxygen Delivery Method room air Intake Visit Reasons: Lap Prisca consult Chief Complaint: epigastric pain 3D Technologist Required: No Is patient in pain?: No Allergies No Known Allergies Allergy (Unverified 11/16/18 08:25) Medications esomeprazole magnesium 40 mg capsule,delayed release 40 mg PO QDAY 12/20/17 [History Confirmed 11/16/18] fluticasone propionate 50 mcg/actuation nasal spray,suspension 2 spray INTRANASAL QDAY 12/20/17 [History Confirmed 11/16/18] melatonin 10 mg capsule 10 mg PO HS PRN 12/21/17 [History Confirmed 11/16/18] acetaminophen 325 mg tablet 650 mg PO Q6H PRN tab 01/05/18 [History Confirmed 11/16/18] metoprolol succinate ER 100 mg tablet,extended release 24 hr 100 mg PO DAILY #90 tab 04/10/18 [Rx Confirmed 11/16/18] aspirin 81 mg tablet,delayed release 162 mg PO QDAY tab 04/17/18 [History Confirmed 11/16/18] clopidogrel 75 mg tablet 75 mg PO DAILY 04/17/18 [History Confirmed 11/16/18] nitroglycerin 0.4 mg sublingual tablet 0.4 mg SUBLINGUAL Q5-15M PRN #25 tab 04/17/18 [Rx Confirmed 11/16/18] Zolpidem Tartrate [Ambien] 10 mg PO QHS 04/19/18 [History Confirmed 11/16/18] pravastatin 40 mg tablet 40 mg PO QHS #90 tab 09/18/18 [Rx Confirmed 11/16/18] Fluoxetine [Prozac] 20 mg PO DAILY 11/12/18 [History Confirmed 11/16/18] PFSH Medical History Acalculous cholecystitis (Acute) Depression (Acute) Hemorrhoids (Acute) Abdominal pain (Acute) Pneumothorax (Resolved) GERD (gastroesophageal reflux disease) (Chronic) Obstructive sleep apnea (Chronic) Atherosclerosis of coronary artery bypass graft without angina pectoris (Chronic) Hyperlipidemia (Chronic) Atherosclerosis of coronary artery of [place] heart with angina pectoris (Inactive) Surgical History History of appendectomy (Resolved) History of coronary artery stent placement (Resolved 04/19/18) H/O coronary artery bypass surgery (Resolved 12/26/17) Family History Mother , Age 80 Cancer Alzheimers disease Father , Age 84 CAD (coronary artery disease) [place] in his 50's CABG Myocardial infarction CVA (cerebral vascular accident) Social History Smoking Status: Never smoker second hand exposure: No alcohol intake: never substance use type: does not use caffeine: Yes Type: coffee Number of servings: 2 what type of physical activity do you participate in: walking frequency: 3-4 times per week HPI HPI HPI: FIORELLA MEDINA, is a 58 M who presents to the office today for HPI HPI Surgical H&P: Yes HPI: FIORELLA MEDINA, is a 58 M who presents to the office today for surgical consultation regarding hospitalization and episode of a calculus cholecystitis. The patient states that over the past several months he has had 3-4 episodes of severe right upper quadrant pain. The most severe however was recently on November 12, 2018 where he had to present to the emergency room and he was observed overnight. A abdominal ultrasound was obtained. A 10 cm distended gallbladder was identified with a 5 mm thick wall. There was pericholecystic fluid but no gallstones. Common bile duct was [address] scan of the abdomen and pelvis was obtained. This again demonstrated the distended gallbladder with pericholecystic stranding. The biliary tree was not dilated there were no gallstones. A small hiatal hernia noted. There is a left-sided inguinal hernia noted. Rectus muscles diastases and a small umbilical hernia. Small left adrenal mass. His white blood cell count was 5000 with a hemoglobin is 16.3 hematocrit 47 platelet count 178,000 with a normal differential. Liver function tests were normal. BUN was 13 and creatinine 1.09. On the subsequent day November 13, 2018 the patient had a hepatobiliary scan. Gallbladder activity was identified at 10 minutes. Ejection fraction was less than 5%. The patient was subsequently seen by Dr. Eric Mcnair. The patient has had a history of coronary bypass surgery in December 2017 and more recently he required cardiac catheterization and placement of 2 drug-eluting stents. This occurred April 19, 2018. The patient is currently on clopidogrel and 160 mg of aspirin daily. On Dr. Mcnair's review is felt that he can interrupt the clopidogrel therapy to allow for more urgent gallbladder surgery. ROS General General: No weight change, appetite, fatigue, colon cancer, breast cancer or weakness HEENT HEENT: No difficulty swallowing, eye injury, eye surgery, swollen glands or hoarseness Endo Endocrine: No thyroid disease, diabetes mellitus, thyroid cancer, Hair loss, heat intolerance or cold intolerance Skin Skin: No rash or changing moles Musc Musculoskeletal: No back problems, arthritis, rheumatoid arthritis, gout or joint pain Cardio Cardiovascular: Yes heart disease; no murmur, pacemaker, atrial fibrillation, high blood pressure, heart attack, heart stent, palpitations, shortness of breat with exertion or chest pain Psych Psychiatric: Yes depression; no anxiety or hearing voices Resp Respiratory: No shortness of breath, Yes sleep apnea, No cough, No COPD, No asthma, No emphysema, No wheezing Gastro Gastrointestinal: Yes abdominal pain, No nausea or vomiting, No diarrhea, No constipation, No blood in stool, Yes acid reflux, Yes hemorrhoids, No ulcers, Yes gallbladder problem, No black,tarry stools Griffin Hematologic: Yes blood thinners, No blood disorders, Yes bleeding, No anemia, No blood clots Neuro Neurologic: No system reviewed and no additional complaints, except as docu, No as per HPI, No abnormal walking, No abnormal hearing, No abnormal movements, No abnormal speech, No behavioral changes, No burning sensations, No confusion, No seizure-like activity, No unsteadiness, No dizziness, No localized weakness, No frequent falls, No headache(s), No lack of coordination, No loss of vision, No memory loss, No numbness, No other visual disturbances, No radiating pain, No restless legs, No sensory deficit, No fainting, No tingling, No tremor(s), No weakness, No other Exam Const General: cooperative, healthy appearing, comfortable, no acute distress Nutritional Appearance: overweight Orientation: alert, awake, oriented x3 HENMT Head: normal to inspection Eyes General: appearance normal, both eyes and all related structures Visual Dave: normal visual dave by confrontation Neck Neck: normal visual inspection Chest Chest palpation & inspection: normal inspection of the chest Resp Effort & Inspection: normal respiratory effort Auscultation: clear to auscultation bilaterally Cardio Rate: regular rate Heart Sounds: no murmurs Other: Bilateral brachial and radials and carotids are 3+. No carotid bruits GI Palpation: soft, no hepatosplenomegaly Auscultation: normal bowel sounds Other: Overweight Small partially reducible umbilical hernia Musc Cervical Spine: normal cervical lordosis Skin General: no rashes or lesions noted Neuro General: alert, awake Extrem General: no calf tenderness bilaterally Psych Affect: normal affect Assessment & Plan Problems 1. Acalculous cholecystitis K81.9 Plan I had a detailed discussion with the patient regarding his acalculous cholecystitis which caused a overnight hospitalization. I am recommending to him a lap scopic cholecystectomy with selective cholangiography. In great detail we discussed the technique, benefit, risks and alternatives. We will have him hold his clopidogrel for 5 days preop. We will have him continue aspirin at the dosage of 81 mg daily. He has a small umbilical hernia which I anticipate treating with suture repair and not mesh repair at this setting. The patient is aware that this is anticipated to be a technically much more difficult procedure due to the degree of inflammation identified on ultrasound and CT. He has had an opting to ask and have questions answered. We will schedule and proceed at his discretion. I very much appreciate the kind opportunity of assisting with his surgical care. CC: Dr. Tera Vázqeuz, III and Dr. Eric Vázquez M.D., F.A.C.S. Coding Level of Care Code Comprehensive,moderate Diagnoses Acalculous cholecystitis K81.9 11/17/18 1608 <Electronically signed by Kevyn Vázquez MD> Date Kevyn Vázquez MD Patient re evaluated and no changes noted.
[2018-11-22] VITALS (8 sets, daily range): BP systolic 119–143; BP diastolic 63–73; PULSE 50–70; RESP 14–16; TEMP 36.1–36.6; O2SAT 93–100
[2018-11-22] MEDS: Cefazolin 2 GM in 0.9% Normal Saline 100 ML IV (10:23)
--- NOTE | 2018-11-22 10:30 | GALL_PTH ---
PATIENT: FIORELLA MEDINA LOC: [facility] – [place] U#:[id number] AGE/SX: 58/M ROOM: RE11/22/[address]: Dr. Kevyn Vázquez MD : 1960 BED: DIS: 11/22/2018 SPEC #: [id number] RECD: 11/22/18 15:03 STATUS: GIGI LEN #: [id number] LEO: 11/22/18 10:[address]: Kevyn Vázquez DEPT: SURGICAL PATHOLOGY RECD BY: Jonathan Pavon ENTERED: 11/23/18 07:59 SP TYPE: CLAUDIA RAND DR: Dr. Tera Vázquez III, MD Tissues: A - Gallbladder, NOS B - HERNIA Procedures: Surgery Specimen Level II Surgery Specimen Level III HEADER OPERATION: Laparoscopic cholecystectomy with IOC PRE-OP DIAGNOSIS: Acalculous cholecystitis; umbilical hernia TISSUE SUBMITTED: A - Gallbladder, B - Hernia sac MICROSCOPIC DIAGNOSIS A. Gallbladder, cholecystectomy: Gallbladder with minimal chronic inflammation; clinically acalculous cholecystitis. B. Hernia sac: Fibroadipose tissue with congestion, clinically hernia sac. CE:vernon 11/24/18 MICROSCOPIC DESCRIPTION Slides are reviewed. GROSS DESCRIPTION A - Received is one container labeled with the patient's name and designated gallbladder. The specimen consists of a gallbladder measuring 7 x 3 x 2.5 cm. The external surface is smooth and glistening. Focally, it is granular, hemorrhagic and contains cautery artifact. The lumen of the gallbladder contains yellow-green mucoid bile and no calculi. The mucosa is bile-stained and without any mass lesions. The gallbladder wall averages 0.2 cm in thickness and is free of mass lesions. Crane Operator sections of the gallbladder and the cystic duct are submitted in one cassette. B - Received in fixative is one container labeled with the patient's name and designated hernia sac. The specimen consists of an irregular fragment of [place]-yellow fibrofatty tissue measuring 4.5 x 1 x 1 cm. Sections do not reveal mass lesions. The specimen is sectioned and totally submitted in one cassette. / AM:vernon 11/23/18 TC:5 CPT: 13498, 01880
--- NOTE | 2018-11-22 10:31 | DCINST_ITS ---
Discharge Diet: Light diet - advance as tolerated - if you have questions about your diet instructions, please talk to you doctor. Discharge Activity: May Not Drive - for 3-5 days or while taking narcotic pain medicine. May shower in (days): 1 Lifting Restrictions: 10 pounds Call your doctor if your incision/area has: Continuous Slow Oozing, Sudden Increased Bleeding, Increased Pain/ Swelling, Increased Redness, Foul Smelling Discharge Call your doctor if you observe: Fever of 101 or Higher Suture Line Care: Avoid Pulling/Pushing, Avoid Pinching/Bending Additional Dressing/Incision Instructions:: Change or remove dressing in 4 days. Leave steri-strips in place for 1 week. Allergies/Adverse Reactions: Allergies No Known Allergies Allergy (Unverified 11/20/18 15:15) Medications to take at Discharge esomeprazole magnesium 40 mg capsule,delayed release 40 mg PO QDAY 12/20/17 fluticasone propionate 50 mcg/actuation nasal spray,suspension 2 spray INTRANASAL QDAY PRN 12/20/17 melatonin 10 mg capsule 10 mg PO HS PRN 12/21/17 acetaminophen 325 mg tablet 650 mg PO Q6H PRN tab 01/05/18 aspirin 81 mg tablet,delayed release 162 mg PO QDAY tab 04/17/18 clopidogrel 75 mg tablet 75 mg PO DAILY 04/17/18 nitroglycerin 0.4 mg sublingual tablet 0.4 mg SUBLINGUAL Q5-15M PRN #25 tab 04/17/18 Zolpidem Tartrate [Ambien] 10 mg PO QHS PRN 04/19/18 pravastatin 40 mg tablet 40 mg PO QHS #90 tab 09/18/18 Fluoxetine [Prozac] 20 mg PO DAILY 11/12/18 Metoprolol Succinate [Toprol Xl] 100 mg PO QHS 11/20/18 Oxycodone HCl/Acetaminophen [Percocet 5/325] 1 tablet PO Q6H PRN PRN 3 Days #10 tablet 11/22/18 The following prescriptions were given: Oxycodone HCl/Acetaminophen [Percocet 5/325] 1 tablet PO Q6H PRN PRN 3 Days #10 tablet PRN Reason: Pain Primary Care Physician: Tera Vázquez III, MD [Primary Care Provider] - Test Results: Test results from this visit will be discussed in further detail at your follow- up appointment, if applicable. Please Follow Up With: Kevyn Vázquez MD - [phone] When: Call to make an appointment to be seen in about 10 days.
--- NOTE | 2018-11-22 10:45 | RAD_ITS ---
CLINICAL HISTORY: Male, 58 years old. Cholecystitis PROCEDURE: CHOLANGIOGRAM - intraoperative CONSENT: Informed consent obtained SEDATION: General sedation FLUOROSCOPY TIME (if supplied): (0:16) minutes/seconds, cine loop of the procedure performed. Placement of the catheter and the procedure were performed by: Dr. Vázquez Fluoroscopy was provided by Татьяна Méndez, who was present in the room time of the procedure. TECHNIQUE: (All elements of maximal sterile barrier technique followed, including US elements as applicable) After the gallbladder was removed, the cystic duct remnant was cannulized, and contrast injected into the biliary tree a retrograde manner. There is no extravasation of contrast outside the lumen of the biliary tree, there is no abnormal distention of the biliary tree or evidence of filling defect or stricture. There is free flow of contrast into the duodenum. RAD/Cholangiogram/ O R,Initial IMPRESSION: Normal intraoperative cholangiogram. Electronically Signed: Misael Huerta MD at 12:31 EDT , Service support ,
--- NOTE | 2018-11-22 11:57 | OP.PCM_ITS ---
Problem List (1) Acalculous cholecystitis Status: Acute Report of Operation Date of Procedure: 11/22/18 Pre-Operative Diagnosis: Acalculous cholecystitis. Umbilical hernia Post-Operative Diagnosis: Same Surgery/Procedure Performed:: Laparoscopic cholecystectomy with cholangiograms. Umbilical herniorrhaphy Description of Surgical Findings:: Timeout and informed consent was obtained. 58-year-old gent was taken out from placement table underwent general endotracheal intubation anesthesia. The abdomen sterilely prepped draped. Ancef 2 g were given intravenous preoperatively. A curvilinear incision was made the superior portion umbilicus sharp dissection carried down through subcu tissue and umbilical hernia was encountered the hernia sac and contents were resected using electrocautery a telemeter trocar inserted the abdomen was insufflated with CO2 to a pressure of 10 mmHg pressure the abdomen was inspected there was a heavy overlying omentum scarring view to the bowel. There were a few adhesions of omentum to the gallbladder. The gallbladder was not tightly distended. The liver was slightly yellowish in appearance consistent with fatty change. The gallbladder was d istracted blunt dissection was instituted at the infundibular area hemostasis was obtained with electrocautery and Humalog clips the hepatocystic angle was fully dissected free until only the cystic duct and cystic artery remained. Excellent visualization was achieved. 2 hemo-lock clips were placed proximally one distally on the cystic artery stump prior to transecting it. Hemoclip was placed on the cystic duct stump incision made in the cystic duct and through a 14-gauge Angiocath and cholangiogram catheter was inserted. Fluoroscopically controlled clench grams were obtained demonstrating normal ductal anatomy and free flow in the small bowel. The cholangiogram catheter was removed 2 additional hemo-lock clips were placed on the cystic duct stump prior to transecting it. The gallbladder was dissected from the liver bed. It is of note that there was a significant amount of fatty tissue surrounding the gallbladder the infundibular in the liver bed area. All tissues wanted to lose some and so careful attention to hemostasis was pursued. After using electrocautery on the liver bed I placed a piece of fibular and then because the patient asked to go back on clopidogrel I did add FloSeal as well to absolutely assure hemostasis which was intact. The gallbladder was placed in a retrieval bag it was exited at the umbilicus. The liver bed area was inspected again was noted to be hemostatic. The trochars were removed under visualization. The abdomen was allowed to deflate of the CO2. The umbilical hernia was approximated with several simple sutures of 0 Nurolon in a transverse fashion. Good closure was achieved. Skin edges were approximated with interrupted 4 Monocryl subdermal stitches. Steri-Strips Telfa and OpSite dressings applied. Sponge and instrument and needle counts were reported the surgeon to be correct. Blood loss 10 cc. Specimens gallbladder. Drains none. The patient was taken to the recovery area in satisfactory condition without apparent complication. Kevyn Vázquez M.D., F.A.C.S. Type of Anesthesia:: General Anesthesiologist: Isa Mar
[2018-11-22] MEDS: oxyCODONE 5 MG Tablet 10 MG PO (13:59)
[2018-11-22] MEDS: Acetaminophen 325 MG Tablet 650 MG PO (13:59)
== END 2018-11-22 15:30 | disposition home or self-care (01) ==
LOC: SDC 08:18 → AC 08:27
PROVIDERS: Family Provider Family Medicine; PCP Family Medicine; Referring Provider Surgery; Visit Provider Surgery
PROC: (CPT 47610; principal; 2018-11-22 10:10)
DX: K81.9 Cholecystitis, unspecified (principal); K42.9 Umbilical hernia without obstruction or gangrene; F32.9 Major depressive disorder, single episode, unspecified; K21.9 Gastro-esophageal reflux disease without esophagitis; G47.33 Obstructive sleep apnea (adult) (pediatric); I25.10 Atherosclerotic heart disease of native coronary artery without angina pectoris; F41.9 Anxiety disorder, unspecified; E78.5 Hyperlipidemia, unspecified; Z95.1 Presence of aortocoronary bypass graft; Z79.82 Long term (current) use of aspirin; Z79.899 Other long term (current) drug therapy
CPT/HCPCS: 47563; 49585; 74300; 76000; 88302; 88304; J7120; J2405